=== PATIENT | female | born 1995 | race Caucasian/White ===

== ENCOUNTER 2019-01-29 07:52 | Observation (INO) | payer OTHER, SELFPAY ==
[2019-01-29 07:53] VITALS: BP 116/71; PULSE 89; RESP 20; TEMP 37.4; O2SAT 99; BMI 23.9
--- NOTE | 2019-01-29 08:03 | CT_ITS ---
STUDY: CT ABDOMEN AND PELVIS WITH CONTRAST REASON FOR EXAM: Female, 23 years old. 3 day history of right-sided abdominal pain and fever. Elevated white count. RADIATION DOSAGE (If Supplied By Facility): CTDIvol = ( 15.42 ) mGy, DLP = ( 1745.18 ) mGycm TECHNIQUE: Transaxial images were obtained from the dome of the diaphragm to the symphysis pubis with oral contrast. IV/Oral Isovue 370 100CC was administered. Sagittal and coronal images were reconstructed. Individualized dose optimization techniques were used for this CT. COMPARISON: None. FINDINGS: Minimal degree of dependent bibasilar atelectasis. The visualized portions of the heart are within normal limits. There is a 1.2 cm x 0.8 cm focus of subtle decreased attenuation in the superior right liver. This most likely represents a small hemangioma. Normal gallbladder and extrahepatic biliary system. Normal spleen. Normal pancreas. Normal bilateral adrenal glands. There is a 5 mm calculus at the right ureterovesical junction causing a mild degree of the right hydronephrosis and right hydroureter with the periureteric stranding on the right side. Normal left kidney. There is a small hiatal hernia. Normal small intestine. Normal colon. The appendix is visualized and appears normal. Normal abdominal aorta. Normal inferior vena cava. There is borderline retroperitoneal lymphadenopathy with enlarged nodes no greater than 10mm in the short axis diameter. Normal urinary bladder. Follicles are seen in both ovaries. Normal abdominal wall. Normal osseous structures. CT/Abdomen/Pelvis WITH Contrast IMPRESSION: 5 mm calculus at the right ureterovesical junction causing mild degree of right hydroureter and hydronephrosis with perinephric and periureteric stranding. Electronically Signed: Jeffy Rausch, at 10:36 EDT , Service support ,
[2019-01-29] MEDS: Morphine 4 MG/ML Syringe IV (08:13)
[2019-01-29] MEDS: Ondansetron 4 MG/2 ML Vial IV (08:13)
[2019-01-29] MEDS: 0.9% Normal Saline 1,000 ML 125 ML IV (08:14)
[2019-01-29 08:17] LABS: Absolute Lymphocyte Count 1.07 X10^3/uL (0.83-4.51); Absolute Neutrophil Count 14.4 X10^3/uL (2.0-7.7); Basophil# 0.03 X10^3/uL; Basophil% 0.2 % (0-1); Eosinophil# 0.16 X10^3/uL; Hematocrit 41.1 % (37-47); Lymphocyte # 1.07 X10^3/ul (4.0); Lymphocyte % 6.6 % (19-41); Mean Corp Hgb Conc 34.1 g/dL (32-36); Mean Corpuscular Hgb 32.6 pg (27.0-32.0); Mean Corpuscular Volume 95.6 fL (81-99); Mean Platelet Vol. 9.6 fl (6.2-12.0); Monocyte# 0.62 X10^3/uL; Monocyte% 3.8 % (0-10); NRBC Flagged by Analyzer 0 % (0-5); Neutrophil # 14.38 X10^3/uL (2.7-7.7); Neutrophil % 88.2 % (47-70); Platelet Count 293 K/mm3 (150-450); RBC Distribution Width CV 11.1 % (11.6-14.6); RBC Distribution Width SD 38.8 fl (35.1-43.9); White Blood Count 16.3 K/mm3 (4.4-11.0)
--- NOTE | 2019-01-29 08:20 | ED.DCSUM_ITS ---
- ER Visit Summary Date of Service: 01/29/19 Chief Complaint: [Abdominal pain] History of Present Illness: The patient is a 23 F [presents to the emergency department with complaint of right lower quadrant abdominal pain that started initially 3 days ago. Patient states that it started initially as just some mild periumbilical cramping that has now become continuous pain in the right lower quadrant. Patient states pain worse with movement. He said decreased appetite. She complains of nausea and started vomiting last night. She denies urinary symptoms. Patient did have low-grade fever last night up to 100 point something per patient and her mother. Patient's last menstrual period was about 3 weeks ago. Patient is on oral contraceptives. Patient has had no prior abdominal surgeries. Patient has no medical history otherwise. She denies any diarrhea. She denies blood in her stool or black tarry stool.] Physical Examination: [HEENT-PERRLA, EOMI. Cranial nerves II through XII grossly intact. TMs clear. Mucous membranes moist. No adenopathy. Cardiovascular-regular rate and rhythm without murmur or ectopy Lungs-clear to auscultation, chest wall stable without crepitus or subcu emphysema Abdomen-normoactive bowel sounds, soft. Patient has tenderness palpation over right lower quadrant with guarding. Patient does have point tenderness over McBurney's point. There is no rebound, rigidity, or perineal signs. Extremities-intact ?4, normal range of motion, normal pulses, atraumatic] Test Results: [C with differential obtained showed an elevated white blood cell count of 16.3, hemoglobin 14, hematocrit 41, platelets 293. Chemistries unremarkable other than depressed potassium 3.3. LFTs were normal. hCG was negative. CT scan abdomen pelvis pending. Urinalysis pending.] Emergency Department Course and Treatment: [Patient was medicated with morphine and Zofran. Patient case was discussed with general surgeon on-call Dr. Rea Valdes who will admit patient. I suspect clinically the patient has acute appendicitis however the CT results still pending. CT results were obtained which was read by radiology as a normal appendix however she did have a 5 mm right UVJ stone with hydroureter and perinephric's stranding as well as periureteric stranding. Case was then discussed with urology who did not feel patient had a kidney stone but felt she may have more of a pyelonephritis type of picture. Patient was started on Rocephin 1 g IV. Patient had a urine culture sent. She will be admitted to hospitalist with urology consultation.] Treatment Plan: [Admit Disposition: [Admit] Impression: [Abdominal pain Pyelonephritis] This note was generated with [employer] dictation software. It may contain incorrect words, spelling, and punctuation that were not noted in review of the chart prior to signing ED Disposition - Plan for ED Patient:
[2019-01-29 08:27] LABS: Internal QC Validated? YES +Cl - CLEAR BKGD; Pregnancy, Serum, hCG Quali. NEGATIVE Negative
[2019-01-29 08:34] LABS: ALB/GLOB Ratio 0.8 RATIO (0.9-2.4); AST(SGOT) 10 U/L (15-37); Alanine Aminotransfer ALT/SGPT 19 U/L (13-56); Albumin, Serum 3.6 g/dL (3.2-5.0); Alkaline Phosphatase 47 U/L (45-117); Anion Gap 11 (5-15); BUN 7 mg/dL (7-18); Calcium,Total 8.8 mg/dL (8.5-10.1); Chloride 106 mmol/L (98-107); Creatinine, Serum 0.87 mg/dL (0.55-1.02); EST Glomerular Filtration Rate 85 mL/min (>60); Est Glom Filt Rate - Afr Amer 103 mL/min (>60); Estimated Creatinine Clearance 83.19 ml/min; Globulin 4.3 g/dL (2.2-4.2); Glucose 108 mg/dL (74-106); Potassium 3.3 mmol/L (3.5-5.1); Protein, Total 7.9 g/dL (6.4-8.2); Sodium Level 140 mmol/L (136-145)
--- NOTE | 2019-01-29 09:17 | NURSING ---
MED SURG MALORIE RT LOWER QUADRANT ABD PAIN
[2019-01-29 10:21] LABS: Mucous, Urine 0 SEEN /hpf (<or=2+); Red Blood Cells-Urine 0 SEEN /hpf (0-5)
[2019-01-29 10:22] LABS: Color, Urine Yellow (Yellow); Glucose, Dipstick Normal (Normal); Ketone-Dipstick 50 mg/dl (Negative); Leukocyte Esterase-Dipstick 100 /ul (Negative); Nitrite-Dipstick Negative (Negative); Occult Blood-Urine 50 /ul (Negative); Protein-Dipstick Negative (Negative); Urine Bilirubin Dipstick Negative (Negative); Urine Clarity Sl. Cloudy (Clear); Urine Urobilinogen Normal (Normal); Urine pH 6.5 (5.0 - 8.0)
[2019-01-29 10:33] LABS: Bacteria 2+ /hpf (None Seen); Squamous Epithelial Cells - UA 5-10 SEEN /hpf (5-10); White Blood Cells 10-25 SEEN /hpf (0-5)
--- NOTE | 2019-01-29 10:47 | NURSING ---
DR MALORIE VILLEGAS
--- NOTE | 2019-01-29 10:51 | NURSING ---
DR HYACINTH VILLEGAS
--- NOTE | 2019-01-29 11:10 | NURSING ---
DR MIRYAM ROSSI
--- NOTE | 2019-01-29 11:16 | NURSING ---
310 DR MIRYAM WHITE PAIN, PYELONEPHRITIS
--- NOTE | 2019-01-29 11:19 | PCM.HP.STD ---
Problem List (1) Pyelonephritis Status: Acute (2) Abdominal pain Status: Acute History of Present Illness Date of Admission: 01/29/19 Chief Complaint: Right-sided abdominal pain for 3 days. The patient is a 23 year old F with no significant medical problem except menorrhagia on control pill came to ER for right-sided abdominal pain for 3 days. Pain started in mid abdomen and more localized on the right side. Abdominal pain got more worse associated with vomiting 1-2 times, nausea. She also felt low-grade fever, 100 Fahrenheit with chills. Denies burning micturition, increased frequency or urgency, hematuria or other lower urinary tract symptoms. She had cystitis about 3 years ago which did not require admission. In ED, vitals were stable, T-max 99.4. She had mild vomiting after giving Dilaudid. Initial blood work shows leukocytosis 16.3 thousand, neutrophils 88%, K3.3. UA is positive of leukocyte esterase 100, WBC 10-25, RBC 0 and nitrite negative. Urine culture is ordered. Empirically started on IV antibiotic Rocephin and IV fluid, pain medication [] Past Medical History Allergies No Known Allergies Allergy (Verified 01/08/13 14:10) Home Medications: Ambulatory Orders Medication Instructions Recorded Bcp 1 tab PO DAILY 01/13/13 Fluoxetine [Prozac] 60 mg PO DAILY 01/13/13 Buspirone HCl 10 mg PO DAILY 01/29/19 Lorazepam [Ativan] 0.5 mg PO DAILY PRN 01/29/19 Propranolol HCl [Inderal LA (Beta 80 mg PO DAILY 01/29/19 Filemon)] Smoking Status: Never smoker - *Family History Paternal History Items: No pertinent history - Kidney stone and first-degree family relative or urinary obstruction Review of Systems Constitutional: Reports: Chills, Fever, Weakness HEENT: Denies: Head Aches, Sinus Congestion, Sinus Drainage Cardiovascular: Denies: Chest Pain, Palpitations Respiratory: Denies: Cough, Shortness of breath at rest, Sputum production Gastrointestinal: Denies: Abdominal Pain, Nausea, Vomiting Genitourinary: Denies: Dysuria, Frequency, Hematuria, Incontinence, Retention, Urgency Musculoskeletal: Denies: Joint Pain, Joint Tenderness Skin: Denies: Rash, Wounds VTE Information - Inpt Only VTE Present on Admission: No VTE Mechan Device Prophylaxis: None VTE Pharm Prophylaxis ordered?: No Reason prophylaxis not ordered:: Procedure Not Indicated Patient Problems: Active and Suspected Problems Pyelonephritis (Acute) Abdominal pain (Acute) - Physical Exam Vitals/I&O's: Vital Signs Temp Pulse Resp BP Pulse Ox 99.4 F H 89 20 H 116/71 99 01/29/19 07:53 01/29/19 07:53 01/29/19 07:53 01/29/19 07:53 01/29/19 07:53 Oxygen Delivery Method Room Air Weight: 135 lb Body Mass Index (BMI) 23.9 General: Alert, Oriented x3, Cooperative HEENT: Atraumatic, PERRLA, EOMI, Normocephalic Oral: Dry Mucosa Neck: Supple, No JVD, Negative Carotid Bruits Lungs: Clear to auscultation, Normal air movement, No rhonchi, No wheeze, No rales Cardiovascular: Regular rate, Regular Rhythm, Normal S1, Normal S2, No murmurs Abdomen: Bowel Sounds Present, Soft, Non-Distended, Tender - Tenderness present over right side of the abdomen. Right lower quadrant tenderness. Extremities: No edema, Capillary Refill Less than 3 Seconds Skin: No rashes, No breakdown Musculoskeletal: No Tenderness to Palpation of Joints or Extremities Neurological: Cranial nerves II-XII grossly intact Psych/Mental Status: Normal Affect, Appropriate Laboratory Results 01/29/19 08:10: WBC 16.3 H, RBC 4.30, Hgb 14.0, Hct 41.1, MCV 95.6, MCH 32.6 H, MCHC 34.1, RDW Std Deviation 38.8, RDW Coeff of Stephanie 11.1 L, Plt Count 293, MPV 9.6, Immature Gran % (Auto) 0.200, Neut % (Auto) 88.2 H, Lymph % (Auto) 6.6 L, [place] % (Auto) 3.8, Eos % (Auto) 1.0, Baso % (Auto) 0.2, Absolute Neuts (auto) 14.4 H, Absolute Lymphs (auto) 1.07, Nucleated RBC % 0 01/29/19 08:10: Sodium 140, Potassium 3.3 L, Chloride 106, Carbon Dioxide 23.0, Anion Gap 11, BUN 7, Creatinine 0.87, Estim Creat Clear Calc 83.19, Est GFR (MDRD) Af Amer 103, Est GFR (MDRD) Non-Af 85, BUN/Creatinine Ratio 8.0 L, Glucose 108 H, Calcium 8.8, Total Bilirubin 1.30 H, AST 10 L, ALT 19, Alkaline Phosphatase 47, Total Protein 7.9, Albumin 3.6, Globulin 4.3 H, Albumin/Globulin Ratio 0.8 L 01/29/19 08:10: Serum , Qual NEGATIVE 01/29/19 10:20: Urine Color Yellow, Urine Clarity Sl. Cloudy, Urine pH 6.5, Ur Specific [place] 1.010, Urine Protein Negative, Urine Glucose (UA) Normal, Urine Ketones 50 H, Urine Occult Blood 50 H, Urine Nitrite Negative, Urine Bilirubin Negative, Urine Urobilinogen Normal, Ur Leukocyte Esterase 100 H, Urine RBC 0 SEEN, Urine WBC 10-25 SEEN, Ur Squamous Epith Cells 5-10 SEEN, Urine Bacteria 2+, Urine Mucus 0 SEEN Current Medications Sodium Chloride () 1,000 mls @ 125 mls/hr IV .Q8H LOLY Last Admin: 01/29/19 08:14 Dose: 125 mls/hr Documented by: Assessment/Plan All Active Problems Pyelonephritis (Acute) Abdominal pain (Acute) The patient is a 23 year old F with no significant medical problem except menorrhagia on control pill came to ER for right-sided abdominal pain for 3 days. Pain started in mid abdomen and more localized on the right side. Abdominal pain got more worse associated with vomiting 1-2 times, nausea. She also felt low-grade fever, 100 Fahrenheit with chills. Denies burning micturition, increased frequency or urgency, hematuria or other lower urinary tract symptoms. She had cystitis about 3 years ago which did not require admission. In ED, vitals were stable, T-max 99.4. She had mild vomiting after giving Dilaudid. Initial blood work shows leukocytosis 16.3 thousand, neutrophils 88%, K3.3. UA is positive of leukocyte esterase 100, WBC 10-25, RBC 0 and nitrite negative. Urine culture is ordered. Empirically started on IV antibiotic Rocephin and IV fluid, pain medication [] 1. Right-sided pyelonephritis probably secondary to right UV junction small calculus: Patient is being admitted to [facility] floor. IV fluid normal saline, IV Rocephin, pain control and supportive treatment for nausea and vomiting. I discussed with urologist Dr. Trejo and suggested n.p.o. for cystoscopy and right ureteral stent today. follow-up urine culture. If patient spikes fever, will need blood cultures x2. 2. Mild degree of right hydroureter and hydronephrosis with perinephric and periureteric stranding suggestive of pyelonephritis: On IV antibiotics as mentioned above Mild hypokalemia: Potassium is being replaced. Anxiety, depression, and menorrhagia: Patient is on Prozac, Ativan and risperidone at home. Patient on Inderal LA 80 mg daily. DVT prophylaxis, low risk early ambulation encouraged. Discussed with the patient's parent. Clinical Impression(s) from Imaging Studies Abdomen/Pelvis CT 01/29/19 08:03 IMPRESSION: 5 mm calculus at the right ureterovesical junction causing mild degree of right hydroureter and hydronephrosis with perinephric and periureteric stranding. Code Visit Inpatient E&M: 05734 Init Hosp L2
[2019-01-29 12:01] VITALS: BP 131/80; PULSE 84; RESP 16; TEMP 36.9; O2SAT 94
[2019-01-29 12:15] VITALS: BMI 31.4
[2019-01-29] MEDS: HYDROmorphone 0.5 MG/0.5 ML SYRINGE IV ×2 (12:39→19:38)
[2019-01-29] MEDS: 0.9% Normal Saline 1,000 ML 150 ML IV ×2 (12:40→19:29)
[2019-01-29 12:49] VITALS: BMI 31.5
[2019-01-29 12:49] LABS: Magnesium 1.9 mg/dL (1.6-2.6)
[2019-01-29 13:10] VITALS: O2SAT 94
[2019-01-29] MEDS: Ceftriaxone 1 GM/50 ML BAG IV (13:28)
--- NOTE | 2019-01-29 14:43 | CHAPLAIN ---
Type of Pastoral Visit _x__ Initial Visit ___ Follow-up Visit ___ On-call Visit ___ General Patient Visit ___ Spiritual Assessment ___ Family Conference ___ Bereavement ___ Rapid Response ___ Code Blue ___ Other (describe below) Pastoral Care Referral From _x__ Patient ___ Family ___ Nurse ___ Physician ___ Mover ___ Liner Helper ___ Other (describe below) Sacrament/Intervention _x__ Active listening ___ Anointing ___ Denominational ___ Bereavement ___ Communion ___ Risa exploration ___ ___ Life review _x__ Prayer ___ Reconciliation ___ Sacrament of Sick ___ Supportive presence ___ Wedding ___ Other (describe below) Pastoral Comments
--- NOTE | 2019-01-29 15:19 | PCM.CONS.U ---
Reason for Consult Date of Consultation: 01/29/19 Reason for Consultation: Possible kidney stone and urinary tract infection History of Present Illness: The patient is a 23 year old female admitted to the hospital with abdominal pain she underwent a CAT scan demonstrated some dilation in the ureter and radiology report dictated a 5 mm stone in the distal right ureter. I reviewed the CAT scan myself and was not able to identify the stone on CAT scan she has several phleboliths certainly in the right pelvis that could cause confusion. She does have some mild dilation of the ureter but not significant some mild stranding more consistent with pyelonephritis. Urine culture appears positive for infection. Her pain is also not colicky is more like a dull ache pain in the right side. Past Medical History Allergies No Known Allergies Allergy (Verified 01/08/13 14:10) Home Medications: Ambulatory Orders Medication Instructions Recorded Bcp 1 tab PO DAILY 01/13/13 Fluoxetine [Prozac] 60 mg PO DAILY 01/13/13 Buspirone HCl 10 mg PO DAILY 01/29/19 Lorazepam [Ativan] 0.5 mg PO DAILY PRN 01/29/19 Propranolol HCl [Inderal LA (Beta 80 mg PO DAILY 01/29/19 Filemon)] Surgical History: no surgical history Psychiatric History: No pertinent psych hx MONITORING TECH History: No pertinent MONITORING TECH history Lives: With Family Smoking Status: Never smoker Tobacco Use: Non-smoker Alcohol: None - *Family History Paternal History Items: No pertinent history - Kidney stone and first-degree family relative or urinary obstruction Review of Systems Constitutional: Reports: Chills, Fever. Denies: Weight Change HEENT: Denies: Head Aches, Sinus Congestion, Sinus Drainage Cardiovascular: Denies: Chest Pain, Palpitations Respiratory: Denies: Cough, Shortness of breath at rest, Sputum production Gastrointestinal: Reports: Abdominal Pain. Denies: Nausea, Vomiting Genitourinary: Denies: Dysuria Musculoskeletal: Denies: Joint Pain, Joint Tenderness Skin: Denies: Rash, Wounds Neurological: Denies: Numbness, Tingling, Focal weakness Psychiatric: Denies: Anxiety, Depression, Homicidal Ideations, Suicidal Ideations Hematologic/ Lymphatic: Denies: Easy Bruising, Easy Bleeding Physical Exam - Physical Exam Vital Signs Temp 98.4 F 01/29/19 12:01 Pulse 84 01/29/19 12:01 Resp 16 01/29/19 12:01 BP 131/80 H 01/29/19 12:01 Pulse Ox 94 01/29/19 12:01 Intake & Output 01/27/19 01/28/19 01/29/19 23:59 23:59 23:59 Intake Total 470.83 / 470.83 Balance 470.83 / 470.83 Weight: 80.6 kg Intake: Intake, IV Amount 470.83 / 470.83 0.9% Normal Saline 1,000 ML @ 470.83 / 470.83 125 mls/hr IV .Q8H [facility] Rx#: [id number] General: Alert, Oriented x3 HEENT: Atraumatic Oral: Moist Mucosa Neck: Supple Lungs: Normal air movement Cardiovascular: Regular rate Abdomen: Soft, Obese Laboratory Tests Past 24 Hrs 01/29/19 01/29/19 01/29/19 08:10 08:10 08:10 WBC 16.3 H RBC 4.30 Hgb 14.0 Hct 41.1 MCV 95.6 MCH 32.6 H MCHC 34.1 RDW Std Deviation 38.8 RDW Coeff of Stephanie 11.1 L Plt Count 293 MPV 9.6 Immature Gran % (Auto) 0.200 Neut % (Auto) 88.2 H Lymph % (Auto) 6.6 L [place] % (Auto) 3.8 Eos % (Auto) 1.0 Baso % (Auto) 0.2 Absolute Neuts (auto) 14.4 H Absolute Lymphs (auto) 1.07 Nucleated RBC % 0 Sodium 140 Potassium 3.3 L Chloride 106 Carbon Dioxide 23.0 Anion Gap 11 BUN 7 Creatinine 0.87 Estim Creat Clear Calc 83.19 Est GFR (MDRD) Af Amer 103 Est GFR (MDRD) Non-Af 85 BUN/Creatinine Ratio 8.0 L Glucose 108 H Calcium 8.8 Magnesium Total Bilirubin 1.30 H AST 10 L ALT 19 Alkaline Phosphatase 47 Total Protein 7.9 Albumin 3.6 Globulin 4.3 H Albumin/Globulin Ratio 0.8 L Serum , Qual NEGATIVE Urine Color Urine Clarity Urine pH Ur Specific [place] Urine Protein Urine Glucose (UA) Urine Ketones Urine Occult Blood Urine Nitrite Urine Bilirubin Urine Urobilinogen Ur Leukocyte Esterase Urine RBC Urine WBC Ur Squamous Epith Cells Urine Bacteria Urine Mucus 01/29/19 01/29/19 08:10 10:20 WBC RBC Hgb Hct MCV MCH MCHC RDW Std Deviation RDW Coeff of Stephanie Plt Count MPV Immature Gran % (Auto) Neut % (Auto) Lymph % (Auto) [place] % (Auto) Eos % (Auto) Baso % (Auto) Absolute Neuts (auto) Absolute Lymphs (auto) Nucleated RBC % Sodium Potassium Chloride Carbon Dioxide Anion Gap BUN Creatinine Estim Creat Clear Calc Est GFR (MDRD) Af Amer Est GFR (MDRD) Non-Af BUN/Creatinine Ratio Glucose Calcium Magnesium 1.9 Total Bilirubin AST ALT Alkaline Phosphatase Total Protein Albumin Globulin Albumin/Globulin Ratio Serum , Qual Urine Color Yellow Urine Clarity Sl. Cloudy Urine pH 6.5 Ur Specific [place] 1.010 Urine Protein Negative Urine Glucose (UA) Normal Urine Ketones 50 H Urine Occult Blood 50 H Urine Nitrite Negative Urine Bilirubin Negative Urine Urobilinogen Normal Ur Leukocyte Esterase 100 H Urine RBC 0 SEEN Urine WBC 10-25 SEEN Ur Squamous Epith Cells 5-10 SEEN Urine Bacteria 2+ Urine Mucus 0 SEEN Assessment/Plan All Active Problems Pyelonephritis (Acute) Abdominal pain (Acute) 23-year-old female on review of the CAT scan she does have some dilation of the ureter but in trace in the ureter down to the bladder I do not see a stone along the course of the ureter there are several phleboliths that could be in the way very close to the ureter. Nevertheless certainly one option would be intervention with ureteroscopy and laser if there is a stone or conservative measures to see if she would pass a possible stone. And treatment of the infection with IV antibiotics. She is clinically stable no signs of sepsis or infection I think we can be conservative and continue with hydration antibiotics and straining urine I think once her white count resolves and is clinically better spreading go home with antibiotics again I am not convinced she has a kidney stone so we will hold off on doing any procedures I spoke to the family and I spoke to the patient and her agreeable with observation and on antibiotics for now. Call me with questions
[2019-01-29 20:15] VITALS: BP 133/75; PULSE 100; RESP 18; TEMP 36.9; O2SAT 98
[2019-01-29] MEDS: proCHLORPERazine 10 MG/2 ML Vial IV (20:40)
[2019-01-29] MEDS: Propranolol LA 80 MG Capsule PO (21:08)
[2019-01-29] MEDS: busPIRone 5 MG Tablet 10 MG PO (21:08)
[2019-01-29] MEDS: FLUoxetine 20 MG Capsule 40 MG PO (21:08)
[2019-01-30] MEDS: oxyCODONE 5 MG Tablet PO ×2 (02:01→10:15)
[2019-01-30 02:15] VITALS: BP 128/77; PULSE 80; RESP 18; TEMP 37.3; O2SAT 98
[2019-01-30 06:07] LABS: Absolute Lymphocyte Count 1.36 X10^3/uL (0.83-4.51); Absolute Neutrophil Count 8.7 X10^3/uL (2.0-7.7); Basophil# 0.03 X10^3/uL; Basophil% 0.3 % (0-1); Eosinophil# 0.09 X10^3/uL; Eosinophils% 0.8 % (0-5); Hematocrit 40.2 % (37-47); Hemoglobin 13.3 g/dL (12.0-15.0); Lymphocyte # 1.36 X10^3/ul (4.0); Lymphocyte % 11.7 % (19-41); Mean Corp Hgb Conc 33.1 g/dL (32-36); Mean Corpuscular Hgb 32.5 pg (27.0-32.0); Mean Corpuscular Volume 98.3 fL (81-99); Mean Platelet Vol. 9.6 fl (6.2-12.0); NRBC Flagged by Analyzer 0 % (0-5); Neutrophil # 8.74 X10^3/uL (2.7-7.7); Neutrophil % 74.9 % (47-70); Platelet Count 236 K/mm3 (150-450); RBC Distribution Width CV 10.9 % (11.6-14.6); RBC Distribution Width SD 39.5 fl (35.1-43.9); Red Blood Count 4.09 M/mm3 (4.2-5.4); White Blood Count 11.7 K/mm3 (4.4-11.0)
[2019-01-30 06:22] LABS: Anion Gap 8 (5-15); BUN 4 mg/dL (7-18); BUN/Creat Ratio 6.2 RATIO (10-20); Calcium,Total 8.7 mg/dL (8.5-10.1); Chloride 109 mmol/L (98-107); Creatinine, Serum 0.64 mg/dL (0.55-1.02); EST Glomerular Filtration Rate 121 mL/min (>60); Est Glom Filt Rate - Afr Amer 147 mL/min (>60); Estimated Creatinine Clearance 113.09 ml/min; Glucose 93 mg/dL (74-106); Potassium 4.1 mmol/L (3.5-5.1); Sodium Level 138 mmol/L (136-145)
--- NOTE | 2019-01-30 08:09 | DCINST_ITS ---
- Discharge Diagnoses Current Active Problems: Current Active and Chronic Problems Pyelonephritis (Acute) Abdominal pain (Acute) You will use the following diet at home:: Regular Discharge Activity: Return to Normal Activity Weight Bearing Status: Weight bearing as tolerated Additional Activity Instructions:: Follow-up with the urine culture in 1 week with PCP Call your doctor if you observe: Fever of 101 or Higher, Numbness or Tingling, Inability to urinate, Inability to have a bowel movement, Using more than one pad per hour, Shortness of breath, Dizziness, Chest pain, Prolonged hiccoughing, Increased palpitations (irregular heartbeat) Allergies/Adverse Reactions: Allergies No Known Allergies Allergy (Verified 01/08/13 14:10) Medications to take at Discharge Bcp 1 tab PO DAILY 01/13/13 Fluoxetine [Prozac] 60 mg PO DAILY 01/13/13 Buspirone HCl 10 mg PO DAILY 01/29/19 Lorazepam [Ativan] 0.5 mg PO DAILY PRN 01/29/19 Propranolol HCl [Inderal LA (Beta Filemon)] 80 mg PO DAILY 01/29/19 Ciprofloxacin [Cipro] 500 mg PO BID #10 tab 01/30/19 The following prescriptions were given: Ciprofloxacin [Cipro] 500 mg PO BID #10 tab Transmission Status: Pending to [facility] Primary Care Physician: Kingston Fajardo DO [Primary Care Provider] - Please follow up with your Primary Care Physician in: in 2 weeks Test Results: Test results from this visit will be discussed in further detail at your follow- up appointment, if applicable. Please Follow Up With: Sher Trejo MD When: RIGHT pyelonephritis in 1-2 we[place]ry
--- NOTE | 2019-01-30 08:10 | PCM.DC.SUM ---
Discharge Date and Diagnosis Date of Admission: 01/29/19 Date of Discharge: 01/30/19 - Primary Discharge Diagnosis Active and Suspected Problems Pyelonephritis (Acute) Abdominal pain (Acute) Hospital Course and Treatment Summary of Care Provided: [] The patient is a 23 year old F with no significant medical problem except menorrhagia on control pill came to ER for right-sided abdominal pain for 3 days mainly mid abdomen along with nausea, low-grade fever 100 Fahrenheit. Denies burning micturition, increased frequency or urgency, hematuria or other lower urinary tract symptoms. She had cystitis about 3 years ago which did not require admission. In ED, vitals were stable, T-max 99.4. She had mild vomiting after giving Dilaudid. Initial blood work shows leukocytosis 16.3 thousand, neutrophils 88%, K3.3. UA is positive of leukocyte esterase 100, WBC 10-25, RBC 0 and nitrite negative. Urine culture is ordered. Empirically started on IV antibiotic Rocephin and IV fluid, pain medication [] 1. Right-sided pyelonephritis probably secondary to right pelvic phlebolith: [facility] IV fluid normal saline, IV Rocephin, pain control and supportive treatment for nausea and vomiting. I discussed with urologist Dr. Trejo and he believes several phleboliths in the right pelvis and he was not able to identify stone. Patient has some mild dilatation of right hydroureter and hydronephrosis and periureteric stranding suggestive of pyelonephritis. Leukocytosis improved from 16,000-11,000. Patient got 2 days of IV antibiotics and discharged on 5 more days of Cipro. Patient did not had fever after admission. In triage, temperature 97.4. Abdominal pain resolved. Preliminary urine culture shows E. coli more than 100,000 colonies; sensitivity pending. Advised to follow-up urine culture sensitivity with PCP. Mild hypokalemia: Potassium is being replaced. Anxiety, depression, and menorrhagia: Patient is on Prozac, Ativan and risperidone at home. Patient on Inderal LA 80 mg daily. DVT prophylaxis, low risk early ambulation encouraged. Discharge medication reconciliation done. Discharge follow-up instructions completed. Discharge process discussed with the patient and all questions were answered to patient's satisfaction.. Clinical Impression(s) from Imaging Studies Abdomen/Pelvis CT 01/29/19 08:03 IMPRESSION: 5 mm calculus at the right ureterovesical junction causing mild degree of right hydroureter and hydronephrosis with perinephric and periureteric stranding. Microbiology Past 72 Hours 01/29/19 10:27 Urine, Clean Catch Urine Culture - Preliminary Presumptive E. coli Laboratory Results 01/30/19 05:48: WBC 11.7 H, RBC 4.09 L, Hgb 13.3, Hct 40.2, MCV 98.3, MCH 32.5 H, MCHC 33.1, RDW Std Deviation 39.5, RDW Coeff of Stephanie 10.9 L, Plt Count 236, MPV 9.6, Immature Gran % (Auto) 0.300, Neut % (Auto) 74.9 H, Lymph % (Auto) 11.7 L, [place] % (Auto) 12.0 H, Eos % (Auto) 0.8, Baso % (Auto) 0.3, Absolute Neuts (auto) 8.7 H, Absolute Lymphs (auto) 1.36, Nucleated RBC % 0 01/30/19 05:48: Sodium 138, Potassium 4.1, Chloride 109 H, Carbon Dioxide 21.0, Anion Gap 8, BUN 4 L, Creatinine 0.64, Estim Creat Clear Calc 113.09, Est GFR (MDRD) Af Amer 147, Est GFR (MDRD) Non-Af 121, BUN/Creatinine Ratio 6.2 L, Glucose 93, Calcium 8.7 - Physical Exam Vitals/I&O's: Vital Signs Temp Pulse Resp BP Pulse Ox 99.1 F 80 18 128/77 H 98 01/30/19 02:15 01/30/19 02:15 01/30/19 02:15 01/30/19 02:15 01/30/19 02:15 Oxygen Delivery Method Room Air Weight: 177 lb 11.081 oz Body Mass Index (BMI) 31.4 Intake and Output for Last 24 Hours 01/28/19 01/29/19 01/30/19 23:59 23:59 23:59 Intake Total 1520.83 / 1520.83 1000 / 1000 Output Total 1200 / 1200 800 / 800 Balance 320.83 / 320.83 200 / 200 General: Alert, Oriented x3, Cooperative HEENT: Atraumatic, PERRLA, EOMI, Normocephalic Neck: Supple, No JVD, Negative Carotid Bruits Lungs: Clear to auscultation, Normal air movement, No rhonchi, No wheeze, No rales Cardiovascular: Regular rate, Regular Rhythm, Normal S1, Normal S2, No murmurs Abdomen: Bowel Sounds Present, Soft, Non Tender, Non-Distended Extremities: No edema, Capillary Refill Less than 3 Seconds Skin: No rashes, No breakdown Musculoskeletal: No Tenderness to Palpation of Joints or Extremities Neurological: Cranial nerves II-XII grossly intact Psych/Mental Status: Normal Affect, Appropriate Laboratory Results 01/29/19 08:10: WBC 16.3 H, RBC 4.30, Hgb 14.0, Hct 41.1, MCV 95.6, MCH 32.6 H, MCHC 34.1, RDW Std Deviation 38.8, RDW Coeff of Stephanie 11.1 L, Plt Count 293, MPV 9.6, Immature Gran % (Auto) 0.200, Neut % (Auto) 88.2 H, Lymph % (Auto) 6.6 L, [place] % (Auto) 3.8, Eos % (Auto) 1.0, Baso % (Auto) 0.2, Absolute Neuts (auto) 14.4 H, Absolute Lymphs (auto) 1.07, Nucleated RBC % 0 01/29/19 08:10: Sodium 140, Potassium 3.3 L, Chloride 106, Carbon Dioxide 23.0, Anion Gap 11, BUN 7, Creatinine 0.87, Estim Creat Clear Calc 83.19, Est GFR (MDRD) Af Amer 103, Est GFR (MDRD) Non-Af 85, BUN/Creatinine Ratio 8.0 L, Glucose 108 H, Calcium 8.8, Total Bilirubin 1.30 H, AST 10 L, ALT 19, Alkaline Phosphatase 47, Total Protein 7.9, Albumin 3.6, Globulin 4.3 H, Albumin/Globulin Ratio 0.8 L 01/29/19 08:10: Serum , Qual NEGATIVE 01/29/19 08:10: Magnesium 1.9 01/29/19 10:20: Urine Color Yellow, Urine Clarity Sl. Cloudy, Urine pH 6.5, Ur Specific [place] 1.010, Urine Protein Negative, Urine Glucose (UA) Normal, Urine Ketones 50 H, Urine Occult Blood 50 H, Urine Nitrite Negative, Urine Bilirubin Negative, Urine Urobilinogen Normal, Ur Leukocyte Esterase 100 H, Urine RBC 0 SEEN, Urine WBC 10-25 SEEN, Ur Squamous Epith Cells 5-10 SEEN, Urine Bacteria 2+, Urine Mucus 0 SEEN 01/30/19 05:48: WBC 11.7 H, RBC 4.09 L, Hgb 13.3, Hct 40.2, MCV 98.3, MCH 32.5 H, MCHC 33.1, RDW Std Deviation 39.5, RDW Coeff of Stephanie 10.9 L, Plt Count 236, MPV 9.6, Immature Gran % (Auto) 0.300, Neut % (Auto) 74.9 H, Lymph % (Auto) 11.7 L, [place] % (Auto) 12.0 H, Eos % (Auto) 0.8, Baso % (Auto) 0.3, Absolute Neuts (auto) 8.7 H, Absolute Lymphs (auto) 1.36, Nucleated RBC % 0 01/30/19 05:48: Sodium 138, Potassium 4.1, Chloride 109 H, Carbon Dioxide 21.0, Anion Gap 8, BUN 4 L, Creatinine 0.64, Estim Creat Clear Calc 113.09, Est GFR (MDRD) Af Amer 147, Est GFR (MDRD) Non-Af 121, BUN/Creatinine Ratio 6.2 L, Glucose 93, Calcium 8.7 Current Medications Acetaminophen (Tylenol) 650 mg PO Q6H PRN PRN PRN Reason: Pain Score 1-3/Temp > 100.7 F Albuterol Sulfate (Ventolin Aerosols) 2.5 mg INHALATION Q2H PRN PRN PRN Reason: Shortness of Breath/Wheezing Bisacodyl (Dulcolax) 10 mg RECTAL DAILY PRN PRN PRN Reason: Constipation Buspirone HCl (Buspar) 10 mg PO QHS [facility] Last Admin: 01/29/19 21:08 Dose: 10 mg Documented by: Dextrose (D50w Syringe) 0 gm IV X1 PRN; Protocol PRN Reason: Hypoglycemia Docusate Sodium (Colace) 200 mg PO BID PRN PRN PRN Reason: Constipation Fluoxetine HCl (Prozac) 40 mg PO QHS [facility] Last Admin: 01/29/19 21:08 Dose: 40 mg Documented by: Glucagon () 1 mg IM .X1 PRN PRN Reason: Hypoglycemia Hydromorphone HCl (Dilaudid Inj) 0.5 mg IV Q4H PRN PRN PRN Reason: Pain Score 6-10/10 Last Admin: 01/29/19 19:38 Dose: 0.5 mg Documented by: Ceftriaxone Sodium (Rocephin) 1 gm in 50 mls @ 100 mls/hr IV Q24 [facility] Last Infusion: 01/29/19 13:58 Dose: Infused Documented by: Lorazepam (Ativan) 0.5 mg PO DAILY PRN PRN Reason: ANXIETY Oxycodone HCl (Oxyir) 5 mg PO Q4H PRN PRN PRN Reason: Pain Score 4-5/10 Last Admin: 01/30/19 02:01 Dose: 5 mg Documented by: Prochlorperazine Edisylate (Compazine Iv) 10 mg IV Q6H PRN PRN PRN Reason: Nausea/Vomiting Last Admin: 01/29/19 20:40 Dose: 10 mg Documented by: Propranolol HCl (Inderal La) 80 mg PO QHS [facility] Last Admin: 01/29/19 21:08 Dose: 80 mg Documented by: Home Medications: Medications to take at Discharge Bcp 1 tab PO DAILY 01/13/13 Fluoxetine [Prozac] 60 mg PO DAILY 01/13/13 Buspirone HCl 10 mg PO DAILY 01/29/19 Lorazepam [Ativan] 0.5 mg PO DAILY PRN 01/29/19 Propranolol HCl [Inderal LA (Beta Filemon)] 80 mg PO DAILY 01/29/19 Ciprofloxacin [Cipro] 500 mg PO BID #10 tab 01/30/19 Following Prescrptions Were Given to Patient: Ciprofloxacin [Cipro] 500 mg PO BID #10 tab Transmission Status: Received by [facility] Primary Care Physician: Kingston Fajardo DO [Primary Care Provider] - Medical Necessity - Tobacco Use Smoking Status: Never smoker Tobacco Use: Non-smoker Meaningful Use Info Meaningful Use Diagnoses (Choose all that apply): None applicable Code Visit OBSV E&M: 27367 Observation care discharge
[2019-01-30 09:26] VITALS: BP 121/71; PULSE 90; RESP 18; TEMP 36.9; O2SAT 99
[2019-01-30] MEDS: Ceftriaxone 1 GM/50 ML BAG IV (09:30)
[2019-01-30 13:05] VITALS: BP 123/84; PULSE 90; RESP 18; TEMP 36.7; O2SAT 98
== END 2019-01-30 13:13 | disposition home or self-care (01) ==
LOC: ED 08:54 → MS3 11:17
PROVIDERS: Admitting Provider Internal Medicine; Emergency Provider Emergency Medicine; Family Provider Family Medicine; PCP Family Medicine; Referring Provider Internal Medicine; Visit Provider Internal Medicine
DX: N10 Acute pyelonephritis (principal); E87.6 Hypokalemia; N13.2 Hydronephrosis with renal and ureteral calculous obstruction; F41.9 Anxiety disorder, unspecified; F32.9 Major depressive disorder, single episode, unspecified; N92.0 Excessive and frequent menstruation with regular cycle
CPT/HCPCS: 36415; 74177; 80048; 80053; 81001; 83735; 84703; 85025; 87086; 87088; 87186; 96361; 96365; 96366; 96375; 96376; 99218; 99282; J7030; Q9967; A4216; G0378; J2405

== ENCOUNTER → 2023-04-10 | Outpatient (CLI) | payer MEDICAID, SELFPAY ==
--- OUTSIDE RECORDS SUMMARY | 2023-04-10 12:32 | XMS RPT_ITS | CCD ---
Author Name Unknown Address [address] [place] [address] Organization [facility] Care Team Providers Care Professor Of Visual Arts Name Role Phone ARTURO BLACKWOOD (COORDINATE MEASURING MACHINE TECHNICIAN) Unavailable Unavailabl e DEVYN CAMPBELL JR. Attending Unavailable Unavailable Primary Care Provider Unavailabl e Problems Problem Classification Problem Date Documented Da te Episodic/Chronic Headache; including migraine (1 source) Migraine without aura, not refractory ; Translations: [Migraine without aura, not intractable, without status migrainosus] Chronic Results Test Name Value Interpretation Reference Range Facil ity Encounters Encounter Date Encounter Type Care Provider Facility Start: 02-22-2022 Transcribe Orders Darby aguilar DO Work Phone: [facility] Payers Date Payer Category Payer Unknown [id number] 2021 Unknown [employer] [place] [facility] [place] [id number] 2021-Present [phone] [address] [place] [address] [id number] 1995 Unknown [id number] Social History Date Type Detail Facility Tobacco smoking status 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 [facility] Start: 1995 Sex Assigned At Not on file [facility] Evaluation note Note Date & Type Note Facility documented in this encounter [facility] Summary Purpose Family History No Family History Records FoundNo Family History Records FoundNo Family History Records Found Advance Directives No Advanced Directives Records FoundNo Advanced Directives Records FoundNo Advanced Directives Records Found Reason for Referral Specialty Diagnoses / Procedures Referred By Contac t Referred To Contact Neurology Diagnoses Migraine without aura and without status migrainosus, not intractable Marcos Darby, [address] [place] [address] [facility] [place] Referral ID Status Reason Start Date Expiration Date V isits Requested Visits Authorized [id number] Authorized 02/22/2022 02/22/2023 1 1 Additional Source Comments INFORMATION SOURCE (unrecogn ized section and content) DATE CREATED AUTHOR AUTHOR'S ORGANIZ ATION 09/28/2021 [facility] DATE CREATED AUTHOR AUTHOR'S ORGANIZ ATION 02/20/2022 [facility] FOR RECORDS PERTAINING TO PATIENTS WHO ARE OR HAVE BEEN ENROLLED IN A CHEMICAL DEPENDENCY/SUBSTANCEABUSE PROGRAM, SOME INFORMATION MAY BE OMITTED. This clinical summary was aggregated from multiple sources. Caution should be exercised in using it in the provision of clinical care. This summary normalizes information from multiple sources, and as a consequence, information in this document may materially change the coding, format and clinical context of patient data. In addition, data may be omitted in some cases. CLINICAL DECISIONS SHOULD BE BASED ON THE PRIMARY CLINICAL RECORDS. [employer] provides no warranty or guarantee of the accuracy or completeness of information in this document.
[2023-04-10 12:40] LABS: Absolute Lymphocyte Count 1.74 X10^3/uL (0.83-4.51); Absolute Neutrophil Count 4.1 X10^3/uL (2.0-7.7); Basophil# 0.03 X10^3/uL; Basophil% 0.5 % (0-1); Eosinophil# 0.22 X10^3/uL; Eosinophils% 3.4 % (0-5); Hematocrit 45.4 % (37-47); Hemoglobin 15.1 g/dL (12.0-15.0); Lymphocyte # 1.74 X10^3/ul (0.83-4.51); Lymphocyte % 26.6 % (19-41); Mean Corp Hgb Conc 33.3 g/dL (32-36); Mean Corpuscular Hgb 31.6 pg (27.0-32.0); Mean Platelet Vol. 9.6 fl (6.2-12.0); Monocyte# 0.44 X10^3/uL; Monocyte% 6.7 % (0-10); NRBC Flagged by Analyzer 0 % (0-5); Neutrophil % 62.6 % (47-70); Platelet Count 324 K/mm3 (150-450); RBC Distribution Width SD 38.8 fl (35.1-43.9); Red Blood Count 4.78 M/mm3 (4.2-5.4); White Blood Count 6.5 K/mm3 (4.4-11.0)
[2023-04-10 13:26] LABS: AST(SGOT) 12 U/L (15-37); Alanine Aminotransfer ALT/SGPT 20 U/L (13-56); Albumin, Serum 3.8 g/dL (3.2-5.0); Alkaline Phosphatase 38 U/L (45-117); Anion Gap 6 (5-15); BUN 9 mg/dL (7-18); BUN/Creat Ratio 10.5 RATIO (10-20); Chloride 109 mmol/L (98-107); Creatinine, Serum 0.86 mg/dL (0.55-1.02); EST Glomerular Filtration Rate 84 mL/min (>60); Est Glom Filt Rate - Afr Amer 102 mL/min (>60); Globulin 3.9 g/dL (2.2-4.2); Glucose 102 mg/dL (74-106); Potassium 4.2 mmol/L (3.5-5.1); Protein, Total 7.7 g/dL (6.4-8.2); Sodium Level 140 mmol/L (136-145); Thyroid Stim Hormone (TSH) 1.18 uIU/mL (0.358-3.74)
== END | disposition home or self-care (01) ==
LOC: LAB 11:43
PROVIDERS: Referring Provider Student in an Organized Health Care Education/Training Program; Visit Provider Student in an Organized Health Care Education/Training Program
DX: F32.9 Major depressive disorder, single episode, unspecified (principal)
CPT/HCPCS: 36415; 80053; 84443; 85025

== ENCOUNTER 2023-07-09 09:08 | Outpatient (RCR) | payer MEDICAID, SELFPAY ==
--- NOTE | 2023-07-09 10:10 | BH.SGPN.GN ---
Behaviors/Verbalizations/Mental Status: []Pt alert and oriented, casually dressed and groomed. Eye contact good. Motor activity appropriate. Speech within normal limits. Affect congruent, mood anxious and depressed. Thoughts linear, logical, no signs of hallucinations or delusions. Client Response/Progress/Benefit: [] Pt first day in IOP tx, connected with topic of anxiety and participated throughout, providing input and taking notes. Participated throughout interactive discussion defining anxiety and identifying cognitive and physiological symptoms of anxiety. Group discussed how anxiety can prevent them from trying new things. Pt identified physical signs of anxiety as increased heart rate, muscle tension, and sweating. Pt identified safety behaviors as self-harm, shuttng down, and avoidance. Benefited from increased awareness and insight on anxiety and its impact. Pt will continue IOP tx to prevent decompensation, improve daily functioning, and increase coping repertoire. Narrative Note: []
--- NOTE | 2023-07-09 11:15 | BH.SGPN.GN ---
Behaviors/Verbalizations/Mental Status: []Pt alert and oriented, casually dressed and groomed. Eye contact good. Motor activity appropriate. Speech within normal limits. Affect congruent, mood anxious and motivated. Thoughts linear, logical, no signs of hallucinations or delusions. Client Response/Progress/Benefit: [] Pt was an active participant AEB pt providing input and listening attentively to peers. Attentive during psychoeducation on mindfulness coping skills and their impact on reducing anxiety and improving overall mental health wellness. Group was able to identify self-soothing and mind-based coping skills which included: 5-senses, meditation, deep breathing, journaling, thought challenging, and progressive muscle relaxation. Pt also participated with peers in practicing mindfulness skills in session. Pt would like to work on forcing herself to be around loved ones when she wants to avoid and isolate. Appeared to benefit from increasing repertoire of anxiety reduction skills. Pt will continue in IOP tx to prevent decompensation, maintain safety, and improve daily functioning. ? Narrative Note: []
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
--- NOTE | 2023-07-09 11:47 | BH.COMM_ITS ---
Communication Note Communication with Client Communication Note: Met with pt to complete initial paperwork and administer the CSSR-S screening and risk assessment. Pt is moderate per the CSSR-S screening and risk assessment. Pt denies any current active suicidal ideations, but does note chronic passive thoughts ?my who life?. Pt has no history of suicide attempts per her report. She does have a hx of one interrupted attempt via plan to hang self in 2009. Pt is future oriented. No guns at home. No stockpiles of medications. Pt receptive to discussion on reducing access to lethal means. Discussed case with Dr. Garcia and pt will be admitted to [facility] tx with a diagnosis of MDD, recurrent, severe, without psychosis F 33.2
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
--- NOTE | 2023-07-11 09:30 | BH.NA_ITS ---
Physical Data Vital Signs Pulse Rate: 92 Blood Pressure: 143/99 Height/Weight Height: 1.6 m Weight:: 63.503 kg Weight in Pounds: 140.0 lbs Current Medication Compliance Medication Compliance Do you take your medication as prescribed?: Yes Nutritional History Appetite Nutritional Instructions: Describe your appetite:: Fair Additional nutritional information:: Client states she does no regularly weigh herself, but states she does think she has lost some weight recently and notices a decreased appetite. Functional Assessment Sleep Pattern Describe any problems with sleeping: Client states she sleeps about 7-8 hours per night. Sensory/Communication Assess Vision Problems Do you have any vision problems?: Glasses Communication Problems Do you have difficulty understanding what people are saying?: No Medical Problems/History Neurological Conditions Neurological: Other (See comments) (migraines) Genitourinary Conditions Genitourinary: Other (See comments) (history of UTI's) Pain Assessment Do you have acute or chronic pain?: No Family History Family History Other Anxiety Autoimmune disorder Breast cancer CVA (cerebral vascular accident) Depression Mental disorder Psychiatric care Surgical History Surgical History Have you had any surgeries? If so, list type and date:: No Substance Abuse Substance Abuse Please describe substance abuse in the last 30 days:: Client reports some alcohol use socially, 4 drinks per month or less. Client states she is a past cigarette smoker (started in high school) but now only vapes 4-5 times per week. Client states she trialed some drugs in high school, but now only uses marijuana 4-5 times per week. Client states she drinks one latte per day with 3 shots of espresso and no other caffeine. Mental Status Summary Mental Status Significant Findings/Observations on Appearance and Mood:: Client is alert and oriented x 4. Client is casually groomed with good hygiene. Client is cooperative with assessment. Client makes good eye contact. Client's voice has normal rate but a somewhat high volume. Client has a mood congruent affect. Client makes logical associations and has normal processing. Client denies delusions/hallucinations. Client states she has chronic passive suicidal ideations, but denies intent/plan. Suicide Assessment Suicidal Ideation Are you currently or have you been suicidal in the past?: Yes Suicidal Intentional Rating Scale (SIRS): Current suicidal thoughts/No plan/Contracts for safety (chronic passive thoughts, denies having plan/intent) Physician Notification Past Psychiatric History MH Treatment Hx Past Psychiatric Medications:: Prozac and Lamictal last year (states she thinks she was on the highest dose), Latuda, Trintellix, Wellbutrin, Buspar, Zoloft, Abilify Age of first mental health symptoms: Client states she first took medication for anxiety around age 14. Describe (age, circumstance, etc) any past hospitalizations: Client states she was hospitalized for mental health 2 times while in high school, ages 15 and 16. Current providers for mental health treatment (counselor, psychiatrist, case assistant, etc.): Dr. Jacob for psychiatry Fall Risk Assessment Age Age: Less than 60 Mental Status Mental Status: Willing & able to ask for assistance when needed Physical Status Physical Status: No problems Impairments Impairments: None Elimination Elimination: Continent AND independent Gait or Balance Gait or Balance: Walks independently Hx of Falls History of falls in the past 6 months: No known history Medications/Substances Psychotropics:: Antidepressants and Antipsychotics Medications/substances used within the past 24 hours or ordered to administer: 1-2 of the medications/substances listed above Total Score Total Points:: 1 RN Summary of Impressions Impressions Recommendations Impressions: Psychiatric Issues: 1. Major depressive disorder, recurrent, severe without psychosis 2. OCD 3. Generalized anxiety disorder 4. Cluster B traits 5. Primary support, work and financial issues 6. Marijuana use disorder Impression: General Medical Conditions: Client states her BP was lower yesterday when she saw Dr. Jacob and she admits to feeling anxious today. Client states she is establishing PCP care at [facility] next week. Level of Care How do the client's current symptoms and functional deficits support need for this level of care?: Client was referred to [facility] by a friend for panic attacks and OCD tendencies that are affecting her level of functioning. Client moved from [place] back to [place] one year a go and moved in with her parents and states her anxiety and depression have been worse since then. Client states she hasn't had a job in a year. Client states in the past year, her OCD tendencies of cleaning and organizing have taken over my life, which leads to increased anxiety and panic attacks and then to depression, and these feelings keep cycling. Client states she has chronic passive suicidal thoughts, but states she has not had a plan or intent in a long time. Client states she is having panic attacks 2-4 times per week. IOP will promote gains and prevent further decompensation while providing social support and skills training.
[2023-07-11 10:05] VITALS: BP 143/99; PULSE 92
--- NOTE | 2023-07-11 10:10 | BH.SGPN.GN ---
Behaviors/Verbalizations/Mental Status: [] Eye contact is good. Motor activity is appropriate. Appearance is casual. Speech is Appropriate. Mood is anxious/irritable. Affect is congruent. Thoughts are linear and logical. No evidence of psychosis. Client Response/Progress/Benefit: [] Pt receptive to session AEB contributing to small group discussion, as well as listening attentively to others, and taking notes. Worked with group to brainstorm the positive and negative aspects of stress on physical and mental health. Group did well to identify the benefits of stress as well as the impact of distress on performance, relationships, and mental health. Pt identified their personal top stressors as: trying to be normal, goals for the future, mental health, finances, family, and being unemployed. Pt seemed to benefit from increased awareness of current stressors and impact stress has on mental health. Will continue in IOP to maintain safety, increase healthy coping, and improve functioning. Narrative Note: []
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
--- NOTE | 2023-07-11 12:42 | BH.DR.ITP ---
Initial Treatment Plan Patient Information Visit Information: ADMISSION DATE: EXPECTED LOS: 4-6 weeks Problems/Symptoms Problem #1:: Depression Symptom:: Sadness, hopelessness, worthlessness, guilt, biological disruption of appetite, low energy, low motivation, passive thoughts of , passive suicidal ideation, thoughts of self-harm. Problem #2:: Anxiety Symptom:: Worry, panic attacks, rumination
--- NOTE | 2023-07-11 15:01 | BH.MTP_ITS ---
Master Treatment Plan Patient Information Program Physician:: Dr. Krys Sarabia Primary Therapist:: HARRY Hidalgo Psychiatric Diagnoses Psychiatric Diagnoses:: 1. Major depressive disorder, recurrent, severe without psychosis 2. OCD 3. Generalized anxiety disorder 4. Cluster B traits 5. Primary support, work and financial issues 6. Marijuana use disorder Diagnosis Code(s):: F33.2 Estimated LOS Estimated LOS (in weeks):: 6 Problem/Goal #1 Problem/Goal #1 Stated Goal:: Pt will reduce depressive symptoms, lack of motivation, and passive thoughts of due to major depressive disorder Description of Barriers: Pt has significant OCD and intrusive thoughts that is preventing pt from living her life and building relationships. Pt has significant negative core beliefs reinforcing depression. Pt also moved back to her hometown and has limited support outside of her parents. Functional Impact: The patient is a 28-year-old female with a history of depression and anxiety my whole life who was referred by a friend to the [facility] behavioral health IOP for worsening symptoms of depression, anxiety and OCD. The patient last worked in [place] at [employer] for 2 years and this was a very stressful job, resulting in the decline of her mental health and pt moving back to [place] to live with her parents. The patient's mental health has been worsening for the past year and she moved back to this area in August. Pt reports struggling with purposelessness, feeling she is ?in the way? and feeling like a burden to her parents, as well as not knowing who she is. She endorses OCD revolving around spending hours cleaning and organizing and redoing chores and checking them over a lot which can take hours. She also has intrusive thoughts that she has done something wrong and often feels bad about herself as a result. She is a worrier by nature, ruminates negatively, and reports having 3-4 panic attacks per week. Pt reports a hx of self-harming since middle school and currently engages in self-harm by hitting or cutting herself. Shared she often leaves bruises when hitting herself and she most recently did this yesterday, last cut herself 1 month ago. She has never required stitches. She smokes marijuana 3-4 times a week in the form of a joint. She endorses sadness, uncomfortable anxious restlessness at times, hopelessness, worthlessness, anhedonia, decreased appetite, difficulties getting out of bed, low motivation, poor energy, guilt, passive thoughts of , and passive suicidal ideation all of the time. The patient states she always has passive suicidal ideation in the back of my mind and always has had this. She denies plan for suicide, active suicidal ideation, homicidal ideation, hallucinations, delusions or symptoms of franky ever. The patient had bulimia with purging by emesis in high school only and not since. Objectives Objective #1: Stated Objective: Pt will learn and utilize 2-3 healthy coping strategies to better manage depressive symptoms and reduce DSM-5 symptoms for depression. Interventions: Through group and individual sessions, therapist will help pt identify triggers and warning signs of depression and emotional dysregulation including emotional, physical, and behavioral changes. Therapist will teach pt various coping skills to manage her symptoms. Therapist will use cognitive restructuring techniques and help pt gain awareness of negative thoughts that reinforce depressive cycles. Therapist will help pt incorporate mindfulness and emotional regulation skills when dealing with difficult situations. Discharge Criteria: Pt will have met this goal when she can report learning and using at least 2 coping skills to manage depressive symptoms and her DSM-5 scores for depression have decreased. Target Date: 08/24/23 Review Date: 08/01/23 Objective #2: Stated Objective: Pt will identify at least 2-3 negative self-talk messages used to reinforce negative core beliefs, worthlessness, and isolation and replace thoughts with balanced, realistic messages. Interventions: Therapist will help pt identify distorted, negative beliefs about self and replace with more realistic, affirmative messages. Therapist will use CBT and DBT to help pt increase insight to the connection between thoughts, emotions, and behaviors. Therapist will encourage pt to practice thought challenging. Discharge Criteria: Pt will have achieved this goal when can verbalize at least 2 cognitive distortions and effectively replace those thoughts with affirmative messages. Target Date: 08/24/23 Review Date: 08/01/23 Problem/Goal #2 Problem/Goal #2 Stated Goal:: Pt will reduce overall frequency and intensity of anxiety, OCD, and intrusive thoughts so that daily functioning is less impaired. Description of Barriers: Pt has significant OCD and intrusive thoughts that is preventing pt from living her life and building relationships. Pt has significant negative core beliefs reinforcing depression. Pt also moved back to her hometown and has limited support outside of her parents. Functional Impact: The patient is a 28-year-old female with a history of depression and anxiety my whole life who was referred by a friend to the [facility] behavioral health IOP for worsening symptoms of depression, anxiety and OCD. The patient last worked in [place] at [employer] for 2 years and this was a very stressful job, resulting in the decline of her mental health and pt moving back to [place] to live with her parents. The patient's mental health has been worsening for the past year and she moved back to this area in August. Pt reports struggling with purposelessness, feeling she is ?in the way? and feeling like a burden to her parents, as well as not knowing who she is. She endorses OCD revolving around spending hours cleaning and organizing and redoing chores and checking them over a lot which can take hours. She also has intrusive thoughts that she has done something wrong and often feels bad about herself as a result. She is a worrier by nature, ruminates negatively, and reports having 3-4 panic attacks per week. Pt reports a hx of self-harming since middle school and currently engages in self-harm by hitting or cutting herself. Shared she often leaves bruises when hitting herself and she most recently did this yesterday, last cut herself 1 month ago. She has never required stitches. She smokes marijuana 3-4 times a week in the form of a joint. She endorses sadness, uncomfortable anxious restlessness at times, hopelessness, worthlessness, anhedonia, decreased appetite, difficulties getting out of bed, low motivation, poor energy, guilt, passive thoughts of , and passive suicidal ideation all of the time. The patient states she always has passive suicidal ideation in the back of my mind and always has had this. She denies plan for suicide, active suicidal ideation, homicidal ideation, hallucinations, delusions or symptoms of franky ever. The patient had bulimia with purging by emesis in high school only and not since. Objectives Objective #1: Stated Objective: Pt will identify 2-3 anxiety and OCD triggers and 2 coping skills to use to manage anxiety as shown by reducing DSM-5 scores for anxiety and OCD. Interventions: Through group and individual sessions, pt will gain awareness of anxiety and OCD triggers and learn numerous techniques to manage anxiety and OCD symptoms. Therapist will teach mindfulness and other calming techniques to manage symptoms and increase distress tolerance skills. Therapist will also help pt utilize mindfulness skills to sit with the uncomfortable to increase confidence in managing triggers. Discharge Criteria: Pt will have met this goal when pt can identify at least 2 triggers and 2 ways to cope with anxiety and show a reduction of DSM-5 scores for anxiety and OCD. Target Date: 08/24/23 Review Date: 08/01/23 Objective #2: Stated Objective: Pt will improve ability to cope with OCD symptoms and reduce avoidance by setting 1-2 small exposure goals each week. Interventions: Through group and individual therapy, pt will gain skills on distress tolerance and sitting with the uncomfortable. Therapist will help pt set small, realistic exposure goals each week. Therapist will have pt practice these goals both in session and at home. Therapist will provide psychoeducation on why this is important to reducing anxiety, OCD, and phobias. Therapist will also provide psychoeducation on intrusive thinking and reducing safety behaviors. Discharge Criteria: Pt will have accomplished this goal when pt can report accomplishing at least 1 exposure goal per week and can report reduced avoidance overall. Target Date: 08/24/23 Review Date: 08/01/23
--- NOTE | 2023-07-11 15:02 | BH.MDN_ITS ---
Multi-Disciplinary Note Note 30-min Individual: Time Started:: 11:35 Date: 07/11/23 Purpose of session/treatment goals addressed:: Pt was having a panic attack in group session. Met with pt to work through panic and address contributing stressors. Eye Contact:: Good Motor Activity:: Restless Appearance:: Casual Speech:: Pressured Mood:: Anxious and Depressed Affect:: Congruent Thoughts:: Linear, Logical, Racing and No evidence of hallucinations/delusions noted Staff Interventions:: motivational interviewing, psychoeducation on: (behavior activation), mindfulness skills, rapport building, strengths perspective and taught coping skills (grounding skills) Client Response:: Pt entered session crying and hyperventilating, stating ?people think I?m weird and know I don?t belong?. Therapist provided reassurance and emotion validation. Guided pt through several grounding skills including deep breathing, progressive muscle relaxation, and 5-senses. Pt able to calm and discuss triggers leading to her panic. Reports that the group environment had become overstimulating, and she had been struggling earlier in the day with overwhelming negative thoughts. Reports ?My brain just won?t quit. It tells me negative things about myself all the time?. Shared she and her previous outpatient therapist had worked on gratitude and positive affirmations in the past. Shared these skills have had variable effect but that the relationship with herself has been something she?s struggled with lifelong. Insight that struggling with feeling out of place in her parent?s home, lack of purpose, and feelings of aimlessness since moving back to [place] from [place] may be reinforcing depression, negative self-talk, and anxiety. Receptive of working with therapist to improve comfort in the home, such as decorating her room to improve comfort in the environment. Additionally, discussed importance of a regular routine and began discussion on values-based components of behavioral activation and mental health importance of incorporating activities that align with her values into her daily life. Goal for pt to reflect on what her core values may be to begin identifying activities that align. Pt calm and able to return to group. Risks/Concerns:: Pt denies any active SI, plan, or intent as of this date, 07/11/23. Progress Toward Goals/Plan:: Pt second day in IOP tx, therefore limited progress. Pt reports finding the group environment to be supportive and encouraging. She is beginning to incorporate deep breathing into daily life and receptive of beginning to add progressive muscle relaxation. Pt struggles with significant anxiety, negative core beliefs, and unrealistic expectations of herself with reinforce depression and hopelessness. Pt recommended continued IOP tx to improve self-care and self-compassion, reduce anxiety, and prevent decompensation. Time Stopped:: 12:05
--- NOTE | 2023-07-13 09:05 | BH.SGPN.GN ---
Behaviors/Verbalizations/Mental Status: [] Eye contact is good. Motor activity is appropriate. Appearance is casual. Speech is Appropriate. Mood is depressed. Affect is congruent. Thoughts are linear and logical. No evidence of psychosis. Reviewed daily check in sheet and pt reports 3/5 for suicidal thoughts and 0/5 for intent. This is baseline for this week. Therapist checked in with patient after group. Client Response/Progress/Benefit: [] Pt was an active participant in group discussion. Attentive. Daily symptom tracker notes 5/5 for depression, anxiety, and irritability. Struggles to identify mental health wins and healthy habits. Primary stressor is current living arrangement with my parents. Struggling to adjust to sharing space with others stating its tough to be in that space. Emotion for today is out of it.Briefly elaborated on the stressors related to living situation and how it impacts her mental health. Mental health win that she reported was making it through my first week of IOP. Benefited from support, encouragment, and feedback from group. Will continue in IOP to maintain safety, stablize mood, increase healthy coping, and improve functioning. Narrative Note: []
--- NOTE | 2023-07-13 10:15 | BH.SGPN.GN ---
Behaviors/Verbalizations/Mental Status: [] Eye contact is good. Motor activity is appropriate. Appearance is casual. Speech is Appropriate. Mood is depressed and anxious. Affect is congruent. Thoughts are linear and logical. No evidence of psychosis. Client Response/Progress/Benefit: []Pt engaged participant AEB listening to others, engaging in activity, and providing feedback at times. Attentive during psychoeducation and provided insight into obstacles that impede mental wellness. Pt shared with group current mental health reality and desired mental health reality. Stated she would like to get to a place where she feels more present and able to navigate her thoughts rather than be controlled by them. Identified barriers to desired reality include: racing thoughts, negative self-talk, and isolation. Benefited from taking look at current mental health state and obstacles for progress. Pt to continue IOP tx to improve mood stability, reduce reliance on maladaptive coping, and prevent decompensation. Narrative Note: []
--- NOTE | 2023-07-13 11:15 | BH.SGPN.GN ---
Behaviors/Verbalizations/Mental Status: [] Eye contact is good. Motor activity is appropriate. Appearance is casual. Speech is Appropriate. Mood is anxious. Affect is congruent. Thoughts are linear and logical. No evidence of psychosis Client Response/Progress/Benefit: [] Pt was an active participant in group discussion and activity. Worked with group to identify strategies to help overcome barriers and obstacles to desired reality. Group developed strategies for the common barriers. Identified personal barriers to desired reality and choose one obstacle to work. Pt stated she wants to work on barrier of negative self-talk by being kind to herself and giving self compassion. Pt seemed to benefit from increased repertoire of healthy coping skills/strategies to overcome common barriers to moving forward. Pt is to continue IOP to improve distress tolerance, increase healthy coping skills, and prevent decompensation.
--- NOTE | 2023-07-17 09:05 | BH.SGPN.GN ---
Behaviors/Verbalizations/Mental Status: [] Eye contact is poor. Motor activity is appropriate. Appearance is casual. Speech is Appropriate. Mood is anxious. Affect is congruent. Thoughts are linear and logical. No evidence of psychosis. Reviewed daily check in sheet and pt reports 1/5 for suicidal thoughts and 0/5 for intent. Below baseline. Client Response/Progress/Benefit: [] Pt was an active participant in group discussion. Attentive. Emotion for today is anxious. Daily symptom tracker notes 4.5 for anxiety and 3/5 for depression. Able to identify mental health wins and healthy habits. Reports several panic attacks this weekend however did not elaborate on triggers. Despite struggles she notes that she did utilize skills to stop the spiral which is progress. Benefited from group support, encouragement, and feedback. Will continue in IOP to prevent decompensation, increase healthy coping skills, stabilize mood, and improve functioning. Narrative Note: []
--- NOTE | 2023-07-17 10:10 | BH.SGPN.GN ---
Behaviors/Verbalizations/Mental Status: []Eye contact is good. Motor activity is appropriate. Appearance is casual. Speech is Appropriate. Mood is anxious. Affect is congruent. Thoughts are linear and logical. No evidence of psychosis. Client Response/Progress/Benefit: [] Pt was an engaged participant AEB listening attentively to others, taking notes, and providing feedback in small group discussions. Attentive during psychoeducation AEB by note taking and providing some input. Pt worked along with peers in small groups to define inappropriate guilt and appropriate guilt. Interactive discussion on examples of both inappropriate and appropriate guilt. Pt able to connect impact inappropriate guilt can have on MH. Pt gave an example of how she feels appropriate guilt when she lashes out on someone, but then she ruminates, and it becomes inappropriate. Appeared to benefit from increased awareness of guilt and the differences between appropriate and inappropriate guilt. Will continue IOP tx to prevent decompensation, improve daily functioning, and gain distress tolerance skills. ? Narrative Note: []
--- NOTE | 2023-07-17 11:15 | BH.SGPN.GN ---
Behaviors/Verbalizations/Mental Status: []Pt alert and oriented, casually dressed and groomed. Eye contact good. Motor activity appropriate. Speech within normal limits. Affect congruent, mood anxious and depressed. Thoughts linear, logical, no signs of hallucinations or delusions. Client Response/Progress/Benefit: [] Pt engaged participant AEB listening attentively to others and providing input throughout group. Pt worked within their small group to identify strategies to manage inappropriate guilt. Identified a personal example of inappropriate guilt as blaming herself for not engaging with friends as often as she would like. Insight this cues a fear of disappointing others and rejection. Pt wants to work on combatting inappropriate guilt by challenging distortions, maintaining her boundaries, and focusing on self-compassion. Pt seemed to benefit from learning about strategies to manage appropriate and inappropriate guilt. Pt will continue IOP tx to promote mood stability, reduce anxiety safety behaviors, and prevent decompensation. Narrative Note: []
--- NOTE | 2023-07-17 14:24 | BH.MDN ---
Multi-Disciplinary Note Note 30-min Individual: Time Started:: 12:12 Date: 07/17/23 Purpose of session/treatment goals addressed:: Purpose of session was to address treatment plan goal #1 obj #2 and goal #2 obj #1. Eye Contact:: Good (tearful) Motor Activity:: Appropriate Appearance:: Casual Speech:: Appropriate Mood:: Anxious and Depressed Affect:: Congruent Thoughts:: Linear, Logical and No evidence of hallucinations/delusions noted Staff Interventions:: motivational interviewing, psychoeducation on: (mistaken beliefs, intrusive thoughts), rapport building, strengths perspective and goal setting Client Response:: Pt receptive of session, actively engaged throughout. Reports overall finding the IOP program to be helpful and provides her with something to do for the day, as well as hope her sx will improve. Pt discussed having a ?pretty good? but high anxiety weekend, noting that she experienced panic on several occasions. Pt shared that she has been trying to implement more of a routine to her days as she often struggles with knowing what to do with herself since moving back home a year ago. Shared that she is usually ?alright? when out in public but has significant intrusive thoughts that others are looking at or judging her, reinforcing negative thoughts about her body image and self-worth. Expressed that her mental health typically worsens upon returning home as she feels shame and discomfort in the home since returning to her parents? house after living independently. Pt described falling into isolation in her room and obsessive cleaning when home, which often triggers panic and additional negative self-talk messages. Receptive of discussion introducing intrusive thoughts and receptive of beginning to work through the ?Overcoming Unwanted Intrusive Thoughts? book. Plans to read first 2 chapters for homework. Additionally, receptive of psychoeducation on mistaken/negative core beliefs and the impact core beliefs have on one?s identity, perception of the world, and ability to manage mental health sx. Pt reports willingness to complete the Mistaken beliefs assessment and review in next session. Risks/Concerns:: Pt denies any active SI, plan, or intent as of this date, 07/17/23. Progress Toward Goals/Plan:: Pt second week in IOP tx, some but limited progress noted. Pt reports feeling less anxious in the group setting and has not had another panic attack in group since last session. She is utilizing grounding and self-talk skills to manage anxiety when in the group setting. Pt reports beginning to implement some of the skills she is learning and seeing some progress. Pt struggles with significant anxiety and negative core beliefs reinforcing her mental health sx and self-worth. Significant self-deprecation. Pt recommended continued IOP tx to improve self- talk, promote behavior activation skills, reduce anxiety, and prevent decompensation. Time Stopped:: 12:45
--- NOTE | 2023-07-19 09:05 | BH.SGPN.GN ---
Behaviors/Verbalizations/Mental Status: [] Eye contact is good. Motor activity is appropriate. Appearance is casual. Speech is Appropriate. Mood is depressed. Affect is congruent. Thoughts are linear and logical. No evidence of psychosis. Reviewed daily check in sheet and pt reports /10 for suicidal ideations. Client Response/Progress/Benefit: [] Pt was an active participant in group discussion. Attentive. Daily symptom tracker notes 5/5 for depression, 4/5 for anxiety, and 3/5 for irritability. States I'm in my head today. Shared recently increased dissociation. She explained dissociation to peers and elaborated on mindfulness and grounding skills which are beneficial. Dissociation occurs when she is overstimulated or overwhelmed. Primary stressor currently is living with her parents. Pt notes that this is her second week attending IOP and she does get benefit from the program. No progress noted. Benefited from group support, encouragment, and feedback. Will continue in IOP to maintain safety, prevent decompensation, stabilize mood, and improve functioning. Narrative Note: []
--- NOTE | 2023-07-19 10:15 | BH.SGPN.GN ---
Behaviors/Verbalizations/Mental Status: []Pt alert and oriented, neatly dressed and groomed. Eye contact good. Motor activity appropriate. Speech within normal limits. Affect congruent, mood content. Thoughts linear, logical, no signs of hallucinations or delusions. Client Response/Progress/Benefit: [] Pt an active participant throughout. Participated during interactive discussion on defining conflict (internal/external) and possible benefits to conflict. Attentive during psychoeducation on conflict styles and engaged during small group activity in which peers identified the benefits and consequences to each conflict style. Pt identified their primary conflict style as the accommodating and collaborating types which can be beneficial but also cause negative feelings towards self. Pt recognizes that he is also an avoiding type with her mental health which leads to more issues. Benefited from increased awareness of the impact of conflict styles in mental health. Will continue in IOP tx to prevent decompensation, improve daily functioning, and increase self-compassion. ? Narrative Note: []
--- NOTE | 2023-07-19 15:00 | BH.SGPN.GN ---
Behaviors/Verbalizations/Mental Status: [] Eye contact is good. Motor activity is appropriate. Appearance is casual. Speech is Appropriate. Mood is anxious and depressed. Affect is congruent. Thoughts are linear and logical. No evidence of psychosis. Client Response/Progress/Benefit: [] Pt was an active participant in group discussions and activity. Engaged with peers in activity and identifying healthy ways to approach each conflict scenario. Group discussed various conflict resolution skills that can be useful in addressing conflict outside of IOP. Benefited from practicing and learning conflict resolution skills during group activity. Able to identify areas pt wants to work on to improve how pt manages conflict both internally and externally. Expressed wanting to work on reducing use of competing language when addressing internal conflict. Will continue in IOP to stabilize mood, improve functioning in daily life, and prevent decompensation. Narrative Note: []
--- NOTE | 2023-07-20 09:05 | BH.SGPN.GN ---
Behaviors/Verbalizations/Mental Status: [Patient was alert and oriented, appropriately dressed and groomed. Eye contact was fair, motor activity normal, patient did not speak other than stating he did not want to share. Affect and mood unable to be determined due to lack of participation. Thoughts unable to be determined due to lack of participation. Reviewed Patients symptom tracker and the patient reports severe in depressed mood, anxiety/panic attacks, risk of suicide, moderate to severe in agitation/irritability/anger, moderate in thoughts of suicide, and low in self-harm urges. Patient will be checked in on to assess for safety.] Client Response/Progress/Benefit: [ Patient stated she did not want to share during first group. Patient was quiet and respectful to other group members while they shared their mental wins and stressors. Patient will continue with IOP treatment to help develop healthy skills, promote mood stability, and improve distress tolerance. ] Narrative Note: []
--- NOTE | 2023-07-20 10:10 | BH.SGPN.GN ---
Behaviors/Verbalizations/Mental Status: [] Eye contact is good. Motor activity is appropriate. Appearance is casual. Speech is Appropriate. Mood is euthymic. Affect is full. Thoughts are linear and logical. No evidence of psychosis Client Response/Progress/Benefit: [] Pt responded well to session AEB contributing to small group discussion, taking notes, and listening attentively to others. Group defined anger and discussed the benefits of managed anger and anger as a secondary emotion. Pt shared perspective on personal benefits of anger as advocating for self. Pt completed worksheet on anger triggers and personal warning signs of anger. Pt identified a common trigger as perceived or real uneasiness in the house. Appeared to benefit from increased knowledge of the anger cycle as well as personal triggers. Will continue IOP to prevent decompensation, increase healthy coping skills, stablize mood, and improve functioning. Narrative Note: []
--- NOTE | 2023-07-20 11:15 | BH.SGPN.GN ---
Behaviors/Verbalizations/Mental Status: []Client alert and oriented, casually dressed and groomed. Eye contact good. Motor activity appropriate. Speech within normal limits. Affect congruent, mood depressed, anxious. Thoughts linear, logical, no signs of hallucinations or delusions. Client Response/Progress/Benefit: []Pt was engaged throughout AEB contributing to group discussion and self-reflection. Group finished processing cues to anger worksheet. Pt contributed as group brainstormed healthy coping skills for better managing anger which included: music, walking/exercise, taking a break, grounding tools, reflection, and journaling. Pt identified personal anger cycle and was able to make connections on how own thoughts/evaluations of a situation can worsen anger feelings. Stated will work on taking a step away, grounding, and trying to return to the anger trigger with an objective outlook. Pt appeared to benefit from identifying different techniques to manage anger as well as gaining awareness of potential consequences of unmanaged anger. Pt to continue IOP to promote use of healthy coping skills and reduce safety behaviors, challenge distortions, and prevent decompensation. Narrative Note: []
--- NOTE | 2023-07-23 10:10 | BH.SGPN.GN ---
Behaviors/Verbalizations/Mental Status: []Client alert and oriented, casually dressed and groomed. Eye contact good. Motor activity appropriate. Speech within normal limits. Affect congruent, mood depressed and anxious. Thoughts linear, logical, no signs of hallucinations or delusions. Client Response/Progress/Benefit: []Pt engaged in session AEB listening attentively to others and providing input throughout. Pt engaged in activity, able to connect how it can be uncomfortable and difficult to accept when things are out of one?s own control. Pt worked with group to identify what things in life can be hard to accept. Group identified things hard to accept as: change, loss of relationship, mental health diagnosis, other?s behaviors, and finances. Pt identified struggling to accept change which has led to resisting and avoiding it in the past. Seemed to benefit from increased awareness of importance of acceptance. Pt to continue IOP tx to further improve mood stability, application of self-compassion and self-care skills, and prevent decompensation. Narrative Note: []
--- NOTE | 2023-07-23 11:10 | BH.SGPN.GN ---
Behaviors/Verbalizations/Mental Status: []Pt alert and oriented, casually dressed and groomed. Eye contact good. Motor activity appropriate. Speech within normal limits. Affect congruent, mood euthymic. Thoughts linear, logical, no signs of hallucinations or delusions. Client Response/Progress/Benefit: []Pt responded well to session AEB taking notes and contributing to discussion throughout. Pt engaged as group continued discussion on acceptance and the mental health benefits of practicing acceptance. Pt and peers identified what makes acceptance challenging and pt completed a self-reflection exercise on what is hard to accept in pt's life. Pt identified she finds it hard to accept that she can get better. Stated she realizes a lot of the things she finds harder to accept are positive things. Group worked in small groups to identify strategies to increase acceptance. Pt shared she wants to practice using dialectical thinking. Pt appeared to benefit from gaining insight and learning strategies to increase acceptance. Pt will continue IOP tx to challenge distortions, increase healthy coping skills, and prevent decompensation.
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
--- NOTE | 2023-07-25 09:00 | BH.SGPN.GN ---
Behaviors/Verbalizations/Mental Status: [Patient was alert and oriented, appropriately dressed and groomed. Eye contact was poor, motor activity normal, speech within normal limits. Affect congruent, mood anxious. Thoughts linear, logical, no signs of hallucinations or delusions. Reviewed Patients symptom tracker and the patient reports moderate/severe in depressed mood, anxiety/panic attacks, moderate in agitation/irritability/anger, thoughts of suicide, low in self-harm urges/behaviors, and 1-4 on risk of suicide on the [facility] scale.] Client Response/Progress/Benefit: [Patient was engaged and open to the discussion. Patient reported her mood to be ?anxious?. Patients first win is that she went to [employer] yesterday and was walking around the pond when she saw a Mink for the first time. Patients second win was that she read all her unread text messages in her group chat yesterday although she hasn?t had much energy lately. Patients stressor is that her friend is graduating next month and she wants to go to it but is afraid her mental health is not at a place where she would be able to handle herself. Patient was interactive and respectful with other group members about their mental wins and stressors. Patient benefited from the discussion by listening to feedback and giving input on her peer?s stressors and mental health wins. Patient will continue with IOP treatment to help develop healthy skills, promote mood stability, and improve distress tolerance. ] Narrative Note: []
--- NOTE | 2023-07-25 10:10 | BH.SGPN.GN ---
Behaviors/Verbalizations/Mental Status: [] Eye contact is good. Motor activity is appropriate. Appearance is casual. Speech is Appropriate. Mood is anxious and depressed. Affect is congruent. Thoughts are linear and logical. No evidence of psychosis. Client Response/Progress/Benefit: [] Pt was an active participant in group discussions. Attentive during psychoeducation on the 4 communication styles (Passive, Passive-Aggressive, Aggressive, and Assertive) and the obstacles to effective communication. Contributed during interactive discussion on the benefits of communicating effectively which included; having one's needs met, helping, building connection with others, decreases stress and uncertainty, improved relationships, and increased trust. Worked well in small group in which pt and peers identified the benefits and disadvantages to the different communication styles. Pt identified connecting with aspects of each of the communication styles, reports she often aims for assertive communication. Benefited from increased understanding of communication styles and how these can impact effective communication. Will continue in IOP to prevent decompensation, improve mood stability, and improve functioning. Narrative Note: []
--- NOTE | 2023-07-25 11:15 | BH.SGPN.GN ---
Behaviors/Verbalizations/Mental Status: []Pt alert and oriented, casually dressed. Eye contact good. Motor activity appropriate. Speech within normal limits. Affect congruent, mood stressed and agitated. Thoughts linear, logical, no signs of hallucinations or delusions. Client Response/Progress/Benefit: [] Pt responded well to session AEB Pt listening attentively to others and providing input during group discussion on the pay offs and costs of the different communication styles. Pt able to connect how current communication style impacts mental health. Connected with peers? comments about importance of using assertive communication. Pt did well being assertive in the group activity and practiced using assertive communication in the role playing scenarios. Pt helped their group develop assertive communication responses which pt reported helped her be more direct and not over-apologize. Pt seemed to benefit from increasing awareness of healthy strategies to improve communication. Will continue IOP tx to prevent decompensation, gain distress tolerance skills, and improve daily functioning. ? Narrative Note: []
--- NOTE | 2023-07-25 12:22 | PCM.BH.PN ---
Progress Note Progress Note: History of Present Illness/Interim History: Patient is a 28-year-old single female with a history of depression and anxiety who is seen in follow-up at the [facility] behavioral health IOP. The patient also suffers from OCD and panic attacks. I last saw the patient 2 weeks ago and at that time Seroquel had just been added by her outpatient psychiatrist the day before. The patient states that she feels she is learning skills in the IOP. According to staff she has been consistent in attendance and engaged in the program. She states that she continues to have low mood and occasional hopelessness. She is still having 3-4 panic attacks a week but her sleep remains okay at 8 hours a night. She still has occasional passive thoughts of which is chronic for her along with chronic passive suicidal ideation. She denies active suicidal ideation, plan for suicide, homicidal ideation, hallucinations or delusions. Current Psychiatric Medications: [] Nortriptyline 50 mg p.o. daily (x 3 months); Seroquel 50 mg p.o. nightly (x 2 weeks); lorazepam 0.5 mg as needed for panic attack (patient takes it once a week) Mental Status Examination: [] The patient is a 28-year-old female who appears normal for stated age and has 1 nose piercing and wears glasses. She is ambulatory with a normal gait and is casually dressed and groomed with good hygiene. She has no psychomotor agitation or retardation. She is cooperative during the interview. Eye contact is good and speech is normal rate and rhythm and fluent with no pressure. Mood is depressed. Affect is mildly constricted. Thought process is goal-directed and organized. Thought content: There is evidence of chronic passive thoughts of and chronic, passive suicidal ideation. There is no evidence of active suicidal ideation, plan for suicide, homicidal ideation, hallucinations or delusions. Reality testing is intact. Intelligence is average. Judgment is intact. Insight: Some present. Impulsivity: High. Diagnoses: [] 1. Major depressive disorder, recurrent, severe without psychosis 2. OCD 3. Generalized anxiety disorder 4. Strong cluster B traits 5. Primary support, work and financial issues 6. Marijuana use disorder Plan: [] The patient will continue the IOP in behavioral health at [facility] as the structure, support, education and group therapy will hopefully prevent worsening of the patient's symptoms that could require admission to the hospital. She felt safe during the interview and if it anytime she does not feel safe she will let us know or go to the emergency room. The risk, options, possible complications and side effects of the medications were again discussed with the patient and she understands and accepts these. She agrees to increase her Seroquel to 100 mg p.o. nightly to help with her anxiety and panic attacks and depression. Prescription was sent in for this. Patient will continue on nortriptyline at 50 mg p.o. daily.Auvelity is an option for the patient to help treat OCD and depression but the patient does not wish to add another medication to this regimen. May consider increasing nortriptyline to 75 mg at some point but I would want to go higher than that. The patient will continue to follow-up with her outpatient providers and I will see the patient in follow-up while in the program.
--- NOTE | 2023-07-27 09:00 | BH.SGPN.GN ---
Behaviors/Verbalizations/Mental Status: []Pt alert and oriented, casually dressed and groomed. Eye contact good. Motor activity appropriate. Speech within normal limits. Affect constricted, mood depressed. Thoughts linear, logical, no signs of hallucinations or delusions. Reviewed pt?s symptom tracker, no risk for suicidal ideation, plan, or intent 07/27/23. Pt's daily symptom tracker scores for SI were within baseline. Client Response/Progress/Benefit: []Pt responded well to session, attentive and providing support to peers. Pt reports feeling anxious this morning and stated she feels that she has been dissociated for the past few weeks. Pt stated her brain is constantly going and it is uncomfortable. Pt also expressed frustration that she is not getting better in IOP and wants to know when that switch will flip where I stop surviving and start thriving. Pt receptive to group and supervisor cured meats feedback and encouragement. Pt gave herself credit for continuing to be willing and try despite her negative thinking. Pt will continue IOP tx to prevent decompensation, improve distress tolerance skills, and increase application of healthy coping skills. Narrative Note: []
--- NOTE | 2023-07-27 10:15 | BH.SGPN.GN ---
Behaviors/Verbalizations/Mental Status: [] Eye contact is good. Motor activity is appropriate. Appearance is casual. Speech is Appropriate. Mood is euthymic. Affect is congruent. Thoughts are linear and logical. No evidence of psychosis. Client Response/Progress/Benefit: []Client was an active participant during interactive group discussions. Attentive during psychoeducation on the six types of boundaries (physical, emotional, intellectual, sexual, time, and material) AEB note-taking and input. Along with peers contributed to interactive discussion on defining what a boundary is in mental health. Client along with peers identified challenges to setting boundaries which included; lack of self awareness, guilt, generational cycles, fear of disappointing the other person, etc. Client shared personal example of setting a boundary with her parents and how it went well even though she had fears about doing so. Client along with peers identified the benefits to setting boundaries such as increased identify of self, genuine relationships, self-care, and increased confidence. Group discussed the mental health benefits to establishing boundaries at work, school, and home. Client benefited from increased awareness and insight on the importance/benefit to setting health boundaries. Will continue in IOP to prevent decompensation and improve functioning. Narrative Note: []
--- NOTE | 2023-07-27 11:15 | BH.SGPN.GN ---
Behaviors/Verbalizations/Mental Status: []Eye contact is good. Motor activity is appropriate. Appearance is casual. Speech is Appropriate. Mood is euthymic. Affect is congruent. Thoughts are linear and logical. No evidence of psychosis. Client Response/Progress/Benefit: [] Client responded well to session AEB listening attentively to peers, providing some input, as well as taking notes throughout. Client contributed more throughout psychoeducation on different boundary setting styles which is progress as she has struggled to share in prior groups. Reports connecting most with ridged style of boundary setting, identifying that they are that way until they become close with someone then they will tend to get more porous. Participated in group discussion brainstorming various strategies for improving healthy boundary settings, as a group identified practicing in a mirror, starting with easy/small boundaries, and not overly apologizing as strategies to try. Seemed to benefit from increased awareness of how different boundary styles can impact mental health. Will continue IOP tx to increase consistent application of skills, increase self-care and anxiety management, and prevent decompensation. Narrative Note: []
--- NOTE | 2023-07-30 10:15 | BH.SGPN.GN ---
Behaviors/Verbalizations/Mental Status: []Pt alert and oriented, neatly dressed and groomed. Eye contact good. Motor activity appropriate. Speech within normal limits. Affect congruent, mood euthymic. Thoughts linear, logical, no signs of hallucinations or delusions. Client Response/Progress/Benefit: [] Pt responded well to session, contributing to discussion, and engaged during the activity. Group identified the benefits of change which included: increased confidence, improving mental health, and making progress. Worked with the group to identify barriers to change, which included: uncomfortable emotions such as anxiety and fear, lack of energy, worried about what others will think, and fear of the unknown. Pt participated along with group in activity where they identified and discussed the emotions related to change. Pt connected with emotions of feeling torn, anxious, and confused. Benefited from increased awareness and understanding of emotions, benefits, and barriers related to change. Will continue IOP tx to promote mood stability, reduce negative thinking patterns, and improve distress tolerance. Narrative Note: []
--- NOTE | 2023-07-30 11:10 | BH.SGPN.GN ---
Behaviors/Verbalizations/Mental Status: [] Client alert and oriented, casually dressed and groomed. Eye contact good. Motor activity appropriate. Speech within normal limits. Affect congruent, mood depressed and anxious. Thoughts linear, logical, no signs of hallucinations or delusions. Client Response/Progress/Benefit: [] Client responded well to session, attentive. Did well to process activity and work with group to relate the strategies used to overcome barriers in the activity to managing change in own life. Client identified a change they would like to make as actively using thought challenging skills to improve self-confidence. Client identified currently being in preparation stage for this particular change. Client stated their goal is to practice using dialectical thinking daily. Appeared to benefit from identifying a small goal to work towards. Client will continue IOP tx to prevent decompensation, decrease thoughts that lead to depressive and anxiety enducing symptoms and increase overall functioning. Narrative Note: []
--- NOTE | 2023-07-31 09:05 | BH.SGPN.GN ---
Behaviors/Verbalizations/Mental Status: [] Eye contact is good. Motor activity is appropriate. Appearance is casual. Speech is Appropriate. Mood is euthymic. Affect is full. Thoughts are linear and logical. No evidence of psychosis. Reviewed daily check in sheet and pt reports 07/17 for suicidal thoughts. Client Response/Progress/Benefit: [] Pt was an active participant in group discussion. Attentive. Daily symptom tracker notes 08/11 for depression and anxiety. Emotion for today is anxious. Reports feeling out of my body and all over the place. States I'm up here while pointing to her head. Believes she is going through a rough patch and feels lonely. She has stopped reaching out to her friends b/c she believes that she is too negative around them and doesn't want to make them feel sad. Group provided feedback, challenged this cognitive distortion, and encouraged communication strategies to build social supports which was beneficial. Able to idenfiy a mental health win as she as has to work through a panic attack with taking her PRN medication. Will continue in IOP to maintain safety, stabilize mood, and improve functioing. Narrative Note: []
--- NOTE | 2023-08-01 09:00 | BH.SGPN.GN ---
Behaviors/Verbalizations/Mental Status: [] Pt alert and oriented, neatly dressed and groomed. Eye contact good. Motor activity appropriate. Speech within normal limits. Affect congruent, mood euthymic. Thoughts linear, logical, no signs of hallucinations or delusions. Reviewed pt?s symptom tracker, no risk for suicidal ideation, plan, or intent 08/01/23 Client Response/Progress/Benefit: []Pt responded well to session, attentive and listening to peers. Pt reports feeling restless today as pt has some anxious energy but pt stated overall this week has been better for her. Pt reports she went to a bird sanctuary with her mother this week and she felt present and enjoyed her time. Pt felt that being in nature was a good reminder of how helpful it is for me and how present I feel. Pt also gave herself credit for practicing self-compassion and being kind to my younger self instead of judging herself for her past choices. Pt appeared to benefit from reflecting on her application of coping skills and peer feedback. Pt will continue IOP tx to promote mood stability, increase distress tolerance, and improve self-confidence. Narrative Note: []
--- NOTE | 2023-08-01 10:07 | BH.MDN_ITS ---
Multi-Disciplinary Note Note 60-min Individual: Time Started:: 08:26 Date: 08/01/23 Purpose of session/treatment goals addressed:: To address tx plan goal #1 obj #1 and goal #2 obj #2. Eye Contact:: Good Motor Activity:: Appropriate Appearance:: Casual Speech:: Appropriate Mood:: Euthymic and Anxious Affect:: Congruent Thoughts:: Linear, Logical and No evidence of hallucinations/delusions noted Staff Interventions:: motivational interviewing, CBT techniques, strengths perspective and goal setting (created exposure goals) Client Response:: Pt entered session positive and reports she is in a better mood than usual. Attributes this to spending more time outdoors the day before. Pt described going to the [employer] [place] with her parents for her mothers birthday. Shared they had an enjoyable time and she was able to get along with her father without problem as well. Shared feeling more present and experienced fewer ruminating or self-deprecating thoughts throughout the day. Insight that being in nature is an important value of hers and allows her to be more intentional and present. Discussed wanting to spend time outdoors more consistently. Identified a goal to incorporate around 1 hour of time in nature daily. Additionally, described wanting to look into volunteering for a local park to help care for the trails. Went on to discuss a memoire she recently read about someone?s experience in coping with OCD. Pt shared wanting to continue to work on getting comfortable with exposure therapy to reduce her OCD sx as she reports this continues to have an impact on her self-confidence and worth. Receptive of creating a list of potential exposure exercises and rating them on level of discomfort. Pt identified breaking routines as something particularly difficult for her created a goal of changing where she sits each day she attends IOP group sessions to allow herself to sit with discomfort in not establishing a routine. Risks/Concerns:: Client denies any suicidal ideations, plan, or intent as of 08/01/23. Client is future oriented and her mother is a protective factor. Progress Toward Goals/Plan:: Some progress noted. Pt reports improved positivity, improving sense of self-confidence, and more hope than several weeks ago. She is taking more steps to begin working more actively on exposure goals and is improving upon her self-care and ability to engage in activities that align with her values. Pt reports spending time with her father which is a significant step. Continues to struggle with unrealistic expectations of herself, reassurance seeking, poor self-esteem, and negative self-talk. Recommended continued IOP tx to maintain gains, promote further improved mood stability, and prevent decompensation. Time Stopped:: 09:20
--- NOTE | 2023-08-01 10:10 | BH.SGPN.GN ---
Behaviors/Verbalizations/Mental Status: [] Eye contact is good. Motor activity is appropriate. Appearance is casual. Speech is Appropriate. Mood is anxious. Affect is congruent. Thoughts are linear and logical. No evidence of psychosis. Client Response/Progress/Benefit: [] Client responded well to session AEB sharing and listening attentively to others. Group identified types of social support (family, pets, professionals, spiritual, etc) and provided examples of benefits of having social support, including: decreased stress, increased self-esteem, encouragement, distraction, etc. Client also participated in group discussion regarding the barriers to accessing support such as: lack of awareness, lack of trust, and low self-esteem. Client participated in experiential activity illustrating the impact communication, boundaries, and patience play in creating healthy support systems. Client appeared to benefit from increased knowledge of the benefits of social support and greater self-awareness. Will continue IOP to maintain safety, increase healthy coping, and to improve functioning. Narrative Note: []
--- NOTE | 2023-08-01 11:10 | BH.SGPN.GN ---
Behaviors/Verbalizations/Mental Status: [] Client alert and oriented, casually dressed and groomed. Eye contact good. Motor activity appropriate. Speech within normal limits. Affect congruent, mood anxious and dysthymic. Thoughts linear, logical, no signs of hallucinations or delusions. Client Response/Progress/Benefit: [] Client was an active participant throughout AEB contributing to discussion, providing personal examples, and taking notes. Client processed emotions felt in the activity and how they coped in the moment. Client provided input during discussion on the types of support our supports can provide. Client able to identify current support system and barriers that get in the way of using supports by drawing out their own support net. Client reported after identifying what type of supports they receive; they gained awareness that they could benefit from more emotional and tangible supports. Client identified steps to achieve this by challenging herself to ask her emotional supports what more tangible ways of supporting one another could look like. Client shared increasing tangible supports will help them become more more emotionally regulated as well. Client seemed to benefit from identifying the type of support client needs to work on improving. Client recommended to continue IOP tx to promote continued application distress tolerance skills and increase self-compassion skills. Narrative Note: []
--- NOTE | 2023-08-01 14:38 | BH.MTP_ITS ---
Treatment Plan Review Demographics Date of Admission:: 07/09/23 Date of Treatment Plan Review:: 08/01/23 Admitting Diagnoses:: 1. Major depressive disorder, recurrent, severe without psychosis 2. OCD 3. Generalized anxiety disorder 4. Cluster B traits 5. Primary support, work and financial issues 6. Marijuana use disorder Current Diagnoses:: 1. Major depressive disorder, recurrent, severe without psychosis 2. OCD 3. Generalized anxiety disorder 4. Cluster B traits 5. Primary support, work and financial issues 6. Marijuana use disorder Patient Status Patient's Response to Treatment:: Pt is responding somewhat well to IOP tx AEB pt's consistent attendance, report of benefitting from group support and education, and self-report of learning healthy coping skills. Pt is engaged in group sessions, and is doing well to verbally contribute despite reports of anxiety in social settings. Pt reports medication compliance and pt does well with completing homework. Pt does however struggle with consistent application of thought challenging, exposure goals, and positive self-talk. As a result of inconsistent application of skills directed towards addressing negative core beliefs and improving confidence and pleasure, Pt's overall DSM-5 scores have only decreased by 7% since admission. Status of Current Problems and Symptoms: Pt's symptoms of anxiety and depression have decreased since admission and pt reports a reduction in isolation as well, though progress in these areas remain limited given pt inconsistent application of skills outside of the treatment environment. Pt continues to struggle with depression related to accepting her mental health struggles, anxiety related to negative core beliefs and OCD, not feeling connected to herself/her re lationships, and negative thinking patterns. Pt's depression is decreasing, but pt reports ongoing feelings of being a burden, purposelessness, and worthlessness. Progress Problem #1: Problem Name:: depression, hopelessness, and worthlessness. Status of Goals:: Objective 1- in progress. Pt?s DSM-5 scores for depression have decreased 25% since admission. Pt has gained awareness of coping mechanisms that reinforce depression like isolation and self-criticism, and pt has been working on reducing this. Pt has made progress in getting back into activities she enjoys, such as being outdoors and spending time with supports. Pt continues to endorse depressive symptoms such as feeling hopeless, like a burden, and low motivation more than half the days. Objective 2- in progress. Pt is learning about mistaken beliefs and how her self-talk reinforces depression and feelings of worthlessness. Pt continues to struggle with self-compassion and replacing negative self-talk with more affirmative statements. Team Recommendations:: Treatment team recommends pt continue to work on these tx goals. Therapist also encourages pt to increase communication with supports, increased engagement in activities outside the home to improve mood and increase support net, and use of healthy coping skills to manage depression and reduce isolation. Pt was encouraged to continue setting daily goals to reduce isolation and increase motivation as well. Problem #2: Problem Name:: Anxiety, ruminations, avoidance, OCD Status of Goals:: Objective 1- in progress. Per pt?s DSM-5 pt?s anxiety has decreased by 8% since admission. Pt has learned healthy coping skills and does report benefitting from the psychoeducation on intrusive thoughts as well as in group sessions. Pt does however report difficulties in applying the grounding skills she is learning outside of the group setting as well. Objective 2- in progress. Pt reports she has been gaining more awareness of negative th inking patterns and safety behaviors that reinforce anxiety. Pt is continuing to make small strides towards daily exposure goals. Team Recommendations:: Treatment team recommends pt continue to work on these tx goals. Therapist also encourages pt to communicate with supports and reduce self-sabotaging behaviors like isolation and self-deprecation.
--- NOTE | 2023-08-03 09:05 | BH.SGPN.GN ---
Behaviors/Verbalizations/Mental Status: [] Eye contact is good. Motor activity is appropriate. Appearance is casual. Speech is Appropriate. Mood is depressed/anxious. Affect is full. Thoughts are linear and logical. No evidence of psychosis. Reviewed daily check in sheet. Reports increased emotional intensity and lingering thoughts however capable of self-soothing. Reports self-hate and loathing. No intent. Client Response/Progress/Benefit: [] Pt was an active participant in group discussion. Attentive. Daily symptom tracker notes 08/11 for anxiety, depression, and irritability. She reports really bad panic attack this morning related to her physical appearance. I'm not feeling comfortable with myself. Elaborated on struggles with body image which can lead to depression, anxiety, and irritability. I' felt horrible. My head is so loud. She was able to utilize skills to decrease intensity of thoughts and panic this AM. Shared her mindfulness techniques which she used yesterday and this AM. Responded well to group feedback and support. Engaged in discussions with peers. Will continue in IOP to maintain safety, stablize mood, prevent decompensation, and increase healthy coping. Narrative Note: []
--- NOTE | 2023-08-03 10:10 | BH.SGPN.GN ---
Behaviors/Verbalizations/Mental Status: [] Eye contact is fair. Motor activity is appropriate. Appearance is casual. Speech is Appropriate. Mood is anxious. Affect is congruent. Thoughts are linear and logical. No evidence of psychosis. Client Response/Progress/Benefit: [] Pt receptive of session, actively engaged throughout AEB taking notes, providing input, and contributing in small group discussion. Appeared to connect with group topic of automatic thoughts and cognitive distortions and the impact of thought patterns on mental health, coping behaviors, and relationships. This particular group is very heavy on psychoeducation however pt appeared to connect with distortions and how they can impact functioning. Pt appeared to benefit from gaining insight on distorted thinking patterns and how this impacts overall mental health. Will continue IOP to increase consistent use of healthy coping skills, challenge distortions, and prevent decompensation.
--- NOTE | 2023-08-03 11:10 | BH.SGPN.GN ---
Behaviors/Verbalizations/Mental Status: []Pt alert and oriented, neatly dressed and groomed. Eye contact good. Motor activity restless. Speech within normal limits. Affect congruent, mood distressed. Thoughts linear, logical, no signs of hallucinations or delusions. Client Response/Progress/Benefit: [] Pt was an active participant during group discussion. Pt was placed in a smaller group and participated in combatting example distortions with peers. Pt was engaged in the smaller group, participated in group interactions to brainstorm answers, and appeared to be comprehending cognitive distortions. Stated they connect a lot with shoulds, jumping to conclusions, all or nothing thinking, and catastrophizing. Pt gave an example of catastrophizing when she spills coffee. Benefited from gaining further insight and awareness of cognitive distortions as well as practicing ways to reframe and challenge thoughts. Pt was tearful during group, but she was able to regulate her emotions. Will continue in IOP tx to prevent decompensation, improve self-compassion, and increase distress tolerance skills. ? Narrative Note: []
--- NOTE | 2023-08-06 09:05 | BH.SGPN.GN ---
Behaviors/Verbalizations/Mental Status: [] Eye contact is good. Motor activity is appropriate. Appearance is casual. Speech is Appropriate. Mood is depressed. Affect is congruent. Thoughts are linear and logical. No evidence of psychosis. Reviewed daily check in sheet and pt reports fleeting thoughts on SI scale and denies any risk. Client Response/Progress/Benefit: [] Pt was an active participant in group discussion. Attentive. Emotion for today is anxious. Daily symptom tracker notes 4/5 for anxiety and 3/5 for depression. Able to identify mental health wins and healthy habits. Discussed her horrible day on Sunday with sharon that her whole weekend will be ruined. Able to utilize skills to change perspective and mood. She did not isolate and followed through with social plans which was beneficial. Increased confidence as she did not have a panic attacks while in a social setting. She continues to struggle with significant anxiety, depression, and self-harm urges. Reports feeling uncomfortable with herself everyday and is hopeless about her future. Benefited from group support, enocuragment, and feedback. Will continue in IOP to maintain safety, stabilize mood, increase healthy coping skills, and to improve functioing. Narrative Note: []
--- NOTE | 2023-08-06 10:15 | BH.SGPN.GN ---
Behaviors/Verbalizations/Mental Status: []Pt alert and oriented, neatly dressed and groomed. Eye contact good. Motor activity appropriate. Speech within normal limits. Affect congruent, mood euthymic. Thoughts linear, logical, no signs of hallucinations or delusions. Client Response/Progress/Benefit: [] Pt was engaged and an active participant in group discussions. Attentive during psychoeducation and participated in group activity. Group discussed what contributes to a person?s perspective and how perspective can positively or negatively impact mental health treatment. Participated in group discussion on things that can interfere with perspective and pt reflected on their perspective today vs when they started IOP. Pt stated her perspective is more negative ?in regards to the world and myself? but pt is trying to let herself have hope instead of ?robbing myself of hope.? Pt appeared to benefit from increasing awareness of different perspectives and how they can affect mental health. Pt will continue IOP tx to prevent decompensation, improve daily functioning, and increase distress tolerance skills. ? Narrative Note: []
--- NOTE | 2023-08-06 11:15 | BH.SGPN.GN ---
Behaviors/Verbalizations/Mental Status: []Pt alert and oriented, casually dressed and groomed. Eye contact good. Motor activity appropriate. Speech within normal limits. Affect congruent, mood content and anxious. Thoughts linear, logical, no signs of hallucinations or delusions. Client Response/Progress/Benefit: []Pt was attentive and contributed to group discussion. Pt worked with group to identify strategies that can help with challenging negative perspective. Pt completed strengths exploration worksheet, identifying empathy, open-mindedness, love, and creativity as personal strengths. Pt able to acknowledge how these strengths are helping pt and can continue to help pt in mental health journey. Pt identified wanting to work on leaning on her strength of love to begin practicing treating herself with loving kindness. Benefited from identifying personal strengths and strategies for enhancing use of identified strengths. Pt will continue IOP tx to work on application of distress tolerance skills, improve mood stability, and prevent decompensation. Narrative Note: []
--- NOTE | 2023-08-06 14:55 | BH.MDN ---
Multi-Disciplinary Note Note 45-min Individual: Time Started:: 12:05 Date: 08/06/23 Purpose of session/treatment goals addressed:: To address tx plan goal #1 obj #1 & obj #2, as well as goal #2 obj #1. Eye Contact:: Good (tearful) Motor Activity:: Appropriate Appearance:: Casual Speech:: Appropriate Mood:: Anxious and Dysthymic Affect:: Congruent Thoughts:: Linear, Logical and No evidence of hallucinations/delusions noted Staff Interventions:: motivational interviewing, CBT techniques, strengths perspective, completed risk assessment / safety planning (created a self-harm coping plan) and goal setting Client Response:: Pt receptive of session, actively engaged throughout. Reports having a ?really good day? the previous date and believes this is due to challenging herself to spend time with a friend, despite urges to cancel their plans. Reports that she instead advocated for adjusting their plans so that they were more supportive of her mental health needs. Explained that being in large crowds and having a lot of things planned for specific times can be overwhelming and cause unnecessary additional stress for pt. Instead, pt reports spending time at [facility] enjoying the weather and lounging. Insight that by advocating for less stimulating plans, she was able to successfully prevent experiencing panic throughout the entire day. Pt identified that she would like to be more intentional about making plans with friends so that she is not only reaching out in times of need, but also spending time with them while doing well. Reports plans to schedule specific dates and times for hanging out to aid in holding herself accountable. Shared that this would also aid in challenging thoughts of being an inconvenience as she will more easily be able to remind herself that not all of her interactions with friends are to ?put out fires?/ask for support. Went on to describe continuing to struggle with self-compassion and cultivating a healthier relationship with herself. Disclosed recently engaging in self-harm via hitting herself in the head when unable to prevent racing thoughts from escalating to point of panic. Pt was receptive of alternatives to self-harm and connected with pairing a distress tolerance skill, such as taking a cold shower or progressive muscle relaxation, will a self-compassion affirmation. Plans to write these on index cards to reduce likelihood of not knowing what to say. Plans to practice throughout each day so she is is used to these exercises when a self-harming urge arises. Pt noted improving in her willingness to practice positive self-talk and provided an example of using mindfulness and telling herself ?I see how hard you?re trying and I?m really proud of you? following a panic attack she had over the weekend. Reports feeling proud of her ability to implement compassionate affirmations and would like to work up to telling herself ?I love you in the mirror?. Risks/Concerns:: Denies SI, plan, or intent as of this date 08/06/23. Did disclose recent self-harming via bruising herself. Denies cutting or other forms of self-harm. Denies continued urges and willing to create a self-harm coping plan. Progress Toward Goals/Plan:: Progress remains variable. Improvements in reaching out to supports, advocating for mental health needs, and working on small exposure goals. Pt does however continue to struggle with minimizing progress, significant negative self-talk, and self-reports I feed into my anxiety and panic and let it take me to crisis. Receptive of creating plans to implement grounding skills more intentionally when recognizing warning signs for anxiety and OCD sx. Additionally receptive of more consistent application of self-compassion statements. Recommended continued IOP tx to promote healthier means of managing distress, reduce negative self-talk, and improve ability to function in daily life. Time Stopped:: 12:43
--- NOTE | 2023-08-07 09:05 | BH.SGPN.GN ---
Behaviors/Verbalizations/Mental Status: [] Eye contact is poor. Motor activity is appropriate. Appearance is casual. Speech is Appropriate. Mood is depressed. Affect is congruent. Thoughts are linear and logical. No evidence of psychosis. Reviewed daily check in sheet and according to [facility] ideations scale pt reports fleeting thoughts and being able to use healthy coping and grounding skills. Denies overall risk of suicide. Client Response/Progress/Benefit: [] Pt was an active participant in group discussion. Attentive. Daily symptom tracker notes 4/5 for depression/anxiety and a 2/5 for self-harm urges. Reports feeling disconnected and anxious today. I feel uncomfortable in my body. Self-images ruminations this AM. Negative self-talk and thoughts. Able to identify mental health wins and skills used. Reports setting healthy boundaries and learning to be kinder to myself. She elaborated on how these skills have been beneficial to her mental health. Variable progress. Continues to struggle with mental health on daily basis. Benefited from group support, encouragement and feedback. Will continue in IOP to maintain safety, stabilize mood, increase health coping, and improve functioning. Narrative Note: []
--- NOTE | 2023-08-07 10:10 | BH.SGPN.GN ---
Behaviors/Verbalizations/Mental Status: []Eye contact is fair. Motor activity is appropriate. Appearance is casual. Speech is Appropriate. Mood is anxious. Affect is congruent. Thoughts are linear and logical. No evidence of psychosis. Client Response/Progress/Benefit: []Pt participated during the group discussion. Attentive during psychoeducation and actively engaged during experiential activity. Participated during interactive discussion on aspects of fixed mindset. Group identified several aspects of fixed mindset which include: inflexible, belief that one cannot grow, absolute thinking, and all of one's skills, traits, and behaviors can't change. Group identified personal examples of fixed thinking in which pt shared personal fixed thoughts as: I am here just to suffer and I have to prove my worth that I deserve love and should be here. Benefited from increased understanding of personal fixed mindsets and how they can impact mental health. Will continue in IOP to improve distress tolerance, challenge distortions, and prevent decompensation.
--- NOTE | 2023-08-07 11:10 | BH.SGPN.GN ---
Behaviors/Verbalizations/Mental Status: []Pt alert and oriented, casually dressed and groomed. Eye contact good. Motor activity appropriate. Speech within normal limits. Affect congruent, mood content. Thoughts linear, logical, no signs of hallucinations or delusions. Client Response/Progress/Benefit: [] Pt was an active participant during activity and discussion. Pt did well to remain attentive and participate as group worked on identifying characteristics and benefits of adopting a growth mindset. Worked with fellow participants in reframing the example fixed thoughts into growth mindset thoughts. Pt worked on changing own fixed thought and reframed the thought to ?I may have moments, but my worth is always fixed and inherent.? Pt appeared to benefit from challenging own thoughts and engaging in the activity. Pt will continue IOP tx to increase distress tolerance skills, increase self-compassion, and combat negative thinking patterns. ? Narrative Note: []
== END 2023-08-07 23:59 ==
LOC: BHIOP 09:08
PROVIDERS: Referring Provider Psychiatry & Neurology Psychiatry; Visit Provider Psychiatry & Neurology Psychiatry
DX: F33.2 Major depressive disorder, recurrent severe without psychotic features (principal); F42.9 Obsessive-compulsive disorder, unspecified; F41.1 Generalized anxiety disorder; F12.90 Cannabis use, unspecified, uncomplicated; Z79.899 Other long term (current) drug therapy
CPT/HCPCS: 90792; 99214; H2012; H2020; S9480; T1002; 90832; 90834; 90837

== ENCOUNTER → 2023-07-17 | Outpatient (CLI) | payer MEDICAID, SELFPAY ==
[2023-07-17 13:28] LABS: Absolute Lymphocyte Count 2.47 X10^3/uL (0.83-4.51); Absolute Neutrophil Count 4.9 X10^3/uL (2.0-7.7); Basophil# 0.03 X10^3/uL; Basophil% 0.4 % (0-1); Eosinophil# 0.36 X10^3/uL; Eosinophils% 4.3 % (0-5); Hematocrit 42.3 % (37-47); Hemoglobin 14.2 g/dL (12.0-15.0); Lymphocyte # 2.47 X10^3/ul (0.83-4.51); Lymphocyte % 29.8 % (19-41); Mean Corp Hgb Conc 33.6 g/dL (32-36); Mean Corpuscular Hgb 31.6 pg (27.0-32.0); Mean Platelet Vol. 9.5 fl (6.2-12.0); Monocyte# 0.46 X10^3/uL; Monocyte% 5.5 % (0-10); NRBC Flagged by Analyzer 0 % (0-5); Neutrophil # 4.94 X10^3/uL (2.7-7.7); Neutrophil % 59.6 % (47-70); Platelet Count 341 K/mm3 (150-450); RBC Distribution Width CV 11.2 % (11.6-14.6); RBC Distribution Width SD 38.5 fl (35.1-43.9); White Blood Count 8.3 K/mm3 (4.4-11.0)
[2023-07-17 13:55] LABS: Vitamin D,25 Hydroxy 22.5 ng/mL
[2023-07-17 15:30] LABS: AST(SGOT) 14 U/L (15-37); Alanine Aminotransfer ALT/SGPT 26 U/L (13-56); Albumin, Serum 3.8 g/dL (3.2-5.0); Alkaline Phosphatase 37 U/L (45-117); Anion Gap 9 (5-15); BUN 6 mg/dL (7-18); BUN/Creat Ratio 7.7 RATIO (10-20); Calcium,Total 9.1 mg/dL (8.5-10.1); Chloride 108 mmol/L (98-107); Cholesterol 203 mg/dL (200); Creatinine, Serum 0.78 mg/dL (0.55-1.02); EST Glomerular Filtration Rate 94 mL/min (>60); Est Glom Filt Rate - Afr Amer 114 mL/min (>60); Globulin 3.7 g/dL (2.2-4.2); Glucose 103 mg/dL (74-106); Potassium 3.5 mmol/L (3.5-5.1); Protein, Total 7.5 g/dL (6.4-8.2); Sodium Level 138 mmol/L (136-145)
== END | disposition home or self-care (01) ==
PROVIDERS: Student in an Organized Health Care Education/Training Program; PCP Internal Medicine; Referring Provider Internal Medicine; Visit Provider Internal Medicine
DX: E55.9 Vitamin D deficiency, unspecified (principal); F32.9 Major depressive disorder, single episode, unspecified; F41.1 Generalized anxiety disorder
CPT/HCPCS: 36415; 80053; 82306; 82465; 83036; 85025

== ENCOUNTER 2023-08-08 06:32 | Outpatient (RCR) | payer MEDICAID, SELFPAY ==
[2023-08-08 00:29] VITALS: BP 143/99; PULSE 92
--- NOTE | 2023-08-10 10:20 | BH.SGPN.GN ---
Behaviors/Verbalizations/Mental Status: []Pt alert and oriented, casually dressed and groomed. Eye contact poor. Motor activity appropriate. Speech within normal limits. Affect congruent, mood depressed and engaged. Thoughts linear, logical, no signs of hallucinations or delusions. ? Client Response/Progress/Benefit: []Pt responded well to session, attentive and engaged. Pt participated in activity where pts had to guess the celebrity with a known mental health diagnosis and this led to discussion on self-stigma. Group participated in the discussion defining stigma as well as what stigma has kept pt's from doing in their lives. Pt stated mental health stigma has led pt to be fearful, lack effort and trying, and not want to get help in the past. Pt has been working on overcoming internal and societal stigma, and acknowledged that internal stigma has been harder to combat. Pt worked with peers to begin discussion of what reinforces stigma and this was discussed further in the next group. Pt appeared to benefit from learning about the different types of stigma as well as gaining awareness of how stigma as personally impacted pt. Pt will continue IOP tx to promote mood stability, combat distortions, and increase use of healthy coping skills. Narrative Note: []
--- NOTE | 2023-08-10 11:15 | BH.SGPN.GN ---
Behaviors/Verbalizations/Mental Status: []Client alert and oriented, casually dressed and groomed. Eye contact good. Motor activity appropriate. Speech within normal limits. Affect congruent, mood euthymic and anxious. Thoughts linear, logical, no signs of hallucinations or delusions. Client Response/Progress/Benefit:?[] Client engaged participant AEB participating in the activity, providing input during small group discussion, and listening attentively to others. Client appeared to connect with discussion in the benefits of addressing mental health stigma which included: improved relationships, increased willingness to seek help, increased happiness, and improved confidence. Group brainstormed strategies to combat social and perceived stigma. ?Client shared one thing she can personally do to combat stigma is to decrease how often she apologizes for who she is to others. Appeared to benefit from increasing awareness of strategies to combat stigma. Will continue IOP tx to improve distress tolerance, continue practicing healthy coping skills, and prevent decompensation.
--- NOTE | 2023-08-13 09:05 | BH.SGPN.GN ---
Behaviors/Verbalizations/Mental Status: [] Eye contact good. Motor activity appropriate. Speech within normal limits. Affect congruent, mood dysthymic and anxious. Thoughts linear, logical, no signs of hallucinations or delusions. Reviewed client?s symptom tracker, denies SI, plan, or intent as of 08/13/2023. Client Response/Progress/Benefit: [] Client receptive of session, attentive and willing to process with group. Identified mental health ?wins? today as going out to dinner with her family for her mom?s birthday. 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 Pt shared worrying people she knew would ask her about her life and what she is doing and she would not know what to say. Discussed doing well to challenge these thoughts and sit with the uncomfortable. Several group participants could relate and provided supportive feedback. Additional win noted as challenging herself to pick an outfit and commit to it rather than feeding into distorted thoughts about her self-image. Shared this has been a lifelong struggle for her and she felt proud managing it. Current stressor noted as general increased anxiety over the past week. Did well to identify several skills she can utilize to continue to improve her ability to manage and self-reflected upon limited application of coping skills without external encouragement. Receptive of suggestions by the group. Recommended continued IOP tx to continue to promote mood stability, as well as consistent skill application, and prevent decompensation. Narrative Note: []
--- NOTE | 2023-08-13 10:10 | BH.SGPN.GN ---
Behaviors/Verbalizations/Mental Status: [] Eye contact is good. Motor activity is appropriate. Appearance is casual. Speech is Appropriate. Mood is anxious. Affect is congruent. Thoughts are linear and logical. No evidence of psychosis. Client Response/Progress/Benefit: [] Client receptive to session AEB providing input throughout, listening attentively to others, and taking notes. Attentive throughout psychoeducation on the cognitive triangle and maintenance cycles. Engaged in group discussion reviewing the impact of daily activities and behaviors in either reinforcing unhealthy maintenance cycles and depression or assisting in reducing symptoms (?down? vs ?up? activities). Client identified common ?down? activities they engage in as: isolating and not eating. Common ?Up? activities client identified included: wathcing comfort shows and being in nature. Appeared to benefit from increased awareness of current behaviors and impact these have on mental health. Will continue in IOP to stabilize mood, maintain safety, increase healthy coping, and improve functioning. Narrative Note: []
--- NOTE | 2023-08-13 11:10 | BH.SGPN.GN ---
Behaviors/Verbalizations/Mental Status: []Eye contact is good. Motor activity is appropriate. Appearance is casual. Speech is Appropriate. Mood is euthymic. Affect is congruent. Thoughts are linear and logical. No evidence of psychosis. Client Response/Progress/Benefit: [] Pt responded well to session, attentive and engaged in group discussions and activity. Group discussed values and the benefits that knowing one's values can have on one's mental health. Pt explored own values and identified personal top values. Pt stated a personally important value is mental and emotional health. Pt set a goal to improve engagement in this value. Goal identified as vocalizing a genuine truth that counters the negative thought. Pt appeared to benefit from exploring values and creating a weekly goal. Pt also reported benefitting from the activity and the group encouragement today. Will continue in IOP to improve distress tolerance, increase confidence, and prevent decompensation.
--- NOTE | 2023-08-13 13:39 | BH.MDN_ITS ---
Multi-Disciplinary Note Note 30-min Individual: Time Started:: 09:07 Date: 08/13/23 Purpose of session/treatment goals addressed:: To address tx plan goal #1 obj #2 and goal #2 obj #1 & #2. Eye Contact:: Good (tearful at times throughout) Motor Activity:: Appropriate Appearance:: Neat and Casual Speech:: Appropriate Mood:: Anxious and Dysthymic Affect:: Congruent Thoughts:: Linear, Logical and No evidence of hallucinations/delusions noted Staff Interventions:: thought challenging, motivational interviewing, CBT techniques (reviewed patients OCD maintenance cycle), strengths perspective, goal setting (ERP goal) and taught coping skills (reviewed grounding skills) Client Response:: Pt receptive of session, actively engaged throughout. Reports feeling more anxious over the past two weeks and fears she is not making as much progress as she ?should? be. Described a ?meltdown? she had on Sunday after group when discovering paw prints from her cat on the sofa. Shared this led to thoughts that ?everything id dirty? and she is ?dirty. Reports engaging in safety behavior of overcleaning the entire house, despite rationally knowing this is reinforcing her OCD maintenance cycle. Shared she was eventually able to calm down and continue with the rest of the day, but struggled with embarrassment and shame surrounding the event. Insight that her safety behaviors feel ?comfortable? and provide some emotional relief in the moment but result in worsening sx long-term. Receptive of discussion reviewing benefits of exposure- response therapy to improve comfort and reduce safety behaviors. Worked with therapist to create an exposure goal surrounding pt?s cleaning ritual when returning home for the day. Pt reports willingness to try to solely complete her cleaning routine in her bedroom and challenge herself to not pick-up any other rooms in the house. Plans to do this twice this week. Went on to note feeling she is doing well with goals associated with improving her relationships with others and engaging in more activities outdoors that she enjoys but continues to struggle specifically with addressing her internal dialogue and practicing self- compassion. Reports that using thought challenging and self-compassionate statements feel ?false? or ?phony?, as she believes she is inherently ?broken? and ?irredeemable?. Experiences thoughts of ?What?s the point? or ?why bother trying? when attempting to challenge her thoughts post-panic attack. Receptive of beginning with statements that feel more acceptable in those moments, such as ?Wow, that was really hard. I am okay though.? Receptive of practicing pairing these statements with grounding skills following moments of increased anxiety throughout the week. Risks/Concerns:: Client denies any suicidal ideations, plan, or intent as of 08/13/23. Client is future oriented and able to identify protective factors. Progress Toward Goals/Plan:: Progress remains variable. Pt continues to report feeling she is not making progress, this continues to be reinforced by her negative core beliefs, poor self-talk, and unrealistic expectations of herself. Pt is often resistant to applying skills, specifically challenging herself to step outside of her comfort zone and engage in consistent exposure goals, or practice positive affirmations stating that they feel phony or fake. Pt has however made progress in improved self-care, increased engagement in activities she enjoys, spending time with supports, and continued increased engagement in the treatment environment. Pt?s ongoing overidentification with her mental health diagnoses remain a barrier to focusing on her own mental health needs. Recommended continued IOP tx to improve mood stability and confidence, reduce safety behaviors, and prevent decompensation. Time Stopped:: 12:37
--- NOTE | 2023-08-14 09:00 | BH.SGPN.GN ---
Behaviors/Verbalizations/Mental Status: [] Client alert and oriented, casual appearance. Eye contact good. Motor activity appropriate. Speech within normal limits. Affect congruent, mood sad. Tearful. Thoughts linear, logical, no signs of hallucinations or delusions. Reviewed client?s symptom tracker, client reports chronic passive thoughts of denies current intention or plan. This is lower than client's baseline. Client Response/Progress/Benefit: [] Client responded well to session AEB listening to others and sharing thoughts/feelings. Client shared feeling sad and down today because she found out yesterday that her cat has a mass in his stomach. Client tearful when talking about how important this Is to her and feeling anxious about the thought of losing her support cat. Client stated she did have a panic attack after finding out about the mass but was able to ask her mom for support. Client noted positive as feeling the stress of this medical issue with her cat better than she would have in the past. Client stated she was able to do some line for reflection and mindfulness to help manage emotions. Appeared to benefit from support from peers. Will continue IOP tx to improve distress tolerance, promote utilization of healthy coping skills consistently, and prevent decompensation. Narrative Note: []
--- NOTE | 2023-08-14 10:05 | BH.SGPN.GN ---
Behaviors/Verbalizations/Mental Status: []Eye contact is good. Alert and oriented. Motor activity is appropriate. Appearance is casual. grooming is appropriate. Speech is Appropriate. Mood is anxious and depressed. Affect is congruent. Thoughts are linear and logical. No evidence of psychosis or hallucinations. Client Response/Progress/Benefit: []Client an active participate AEB providing contributions, listening attentively to others, and taking notes throughout. The group identified the impact of emotions on communication such as change in tone, body language, shutting down, misperceiving the communication, and willingness to communicate. Client shared struggling with shutting down when experiencing increased anxiety and sadness. During group activity, client did well to challenge herself to participate and reflected on feeling anxious when trying to communicate instructions to fellow participants in order to accomplish the group goal. Client benefited from session by gaining an increased understanding on the importance of managing emotions to improve daily functioning. Client will continue IOP to further improve mood stability, improve use of skills for better symptom management, and prevent decompensation. Narrative Note: []
--- NOTE | 2023-08-14 11:05 | BH.SGPN.GN ---
Behaviors/Verbalizations/Mental Status: []Pt alert and oriented, casually dressed and well groomed. Eye contact good. Motor activity appropriate. Speech within normal limits. Affect congruent, mood anxious. Thoughts linear, logical, no signs of hallucinations or delusions. Client Response/Progress/Benefit: [] Pt engaged in session AEB Pt listening attentively to peers and providing input. Attentive during psychoeducation on 4 zones of regulation. Pt able to identify feelings and behaviors for each zone. Pt identified coping skills one can use to support self in each zone. Identified being in the blue zone when she came to IOP today, but now pt feels more in the green zone. Pt reports being willing to connect with peers and ?allowing myself to feel a different emotion helped.? ?Benefited from increased education on zones of regulation or stages of alertness for emotions and healthy coping skills to use for each zone. Will continue IOP tx to improve distress tolerance, reduce negative thinking patterns, and prevent decompensation. Narrative Note: []
--- NOTE | 2023-08-15 09:05 | BH.SGPN.GN ---
Behaviors/Verbalizations/Mental Status: [] Eye contact is good. Motor activity is appropriate. Appearance is casual. Speech is Appropriate. Mood is depressed. Affect is congruent. Thoughts are linear and logical. No evidence of psychosis. Reviewed daily check in sheet and pt reports lingering thoughts of suicide however being capable of self-soothing. Denies any risk. Client Response/Progress/Benefit: [] Pt was an active participant in group discussion. Attentive. Daily symptom tracker notes 5/5 for anxiety/depression and 3/5 for irritability and self-harm urges. Pt reports feeling detached and states my mind is elsewhere. Frustration related to the slow process that is typical of progress in mental health and the medication game. Elaborated on current psychosocial stressors and how they are impacted her mental health. She notes positive feedback from her parents on how her progress and how she is coping with stressors, however she is having a hard time acknowledging progress and positive feedback. Benefited from group support, encouragement, and feedback. Will continue in IOP to maintain safety, stablize mood, increase healthy coping, and improve functioning. Narrative Note: []
--- NOTE | 2023-08-15 10:10 | BH.SGPN.GN ---
Behaviors/Verbalizations/Mental Status: []Pt alert and oriented, neatly dressed and groomed. Eye contact good. Motor activity appropriate. Speech within normal limits. Affect congruent, mood euthymic. Thoughts linear, logical, no signs of hallucinations or delusions. Client Response/Progress/Benefit: []Pt active participant AEB pt providing input throughout group discussion. Showed engagement during small group discussions and worked with group on identifying how each defense mechanism can impact mental health and gave examples. Pt was engaged during small group discussion and expressed connecting with several of the defense mechanisms reviewed. Pt reported connecting with sublimation, humor, intellectualization, denial, anticipation, and projection. ?Seemed to benefit from gaining awareness about the different defense mechanisms. Pt to continue IOP tx to promote mood stability, reduce negative thinking patterns, and improve distress tolerance skills. Narrative Note: []
--- NOTE | 2023-08-15 11:10 | BH.SGPN.GN ---
Behaviors/Verbalizations/Mental Status: []Pt alert and oriented, neatly dressed and groomed. Eye contact good. Motor activity appropriate. Speech within normal limits. Affect congruent, mood focused. Thoughts linear, logical, no signs of hallucinations or delusions. Client Response/Progress/Benefit: [] Pt responded well to session, participating in activity and small group discussion. Group reviewed the rest of the defense mechanisms and discussed how these are adaptive, maladaptive, or somewhere in the cano. Pt participated in the experiential activity which encouraged pts to draw a castle that portrayed their different defense mechanisms. Pt's defense mechanisms included projection, humor, sublimation, and suppression. Pt identified many of her defense mechanisms as ?cano? as sometimes they help her and other times, they cause her harm. Pt stated she wants to work on ?being patient with myself while navigating my defense mechanisms.? Pt listened to conference concierge teach different skills to help pt?s cope with or change their defense mechanisms. Pt appeared to benefit from gaining insight to the different defense mechanisms and learning coping skills. Pt will continue IOP tx to promote mood stability, combat distortions, and improve self-compassion. ? Narrative Note: []
--- NOTE | 2023-08-15 12:08 | PCM.BH.PN ---
Progress Note Progress Note: History of Present Illness/Interim History: The patient is a 28-year-old single, female with a history of depression and anxiety and OCD who is seen in follow-up at the [facility] behavioral health IOP. I last saw the patient 3 weeks ago and at that time her Seroquel was increased to 100 mg nightly. The patient has been consistent and engaged in the program according to staff but has not made much progress. The patient states she has had a lot of stress especially due to the fact that she found out her cat is sick with probable cancer and a big mass in its stomach. The patient has been very upset about this and found out a few days ago. She still has her intrusive thoughts and rituals around cleanliness and hygiene. She has panic attacks about once a day still with the usual panic attack symptoms that can sometimes result in a meltdown. She still has chronic passive thoughts of and chronic passive suicidal ideation which is baseline for her. She denies active suicidal ideation, plan for suicide, homicidal ideation, hallucinations or delusions. Current Psychiatric Medications: [] Nortriptyline 50 mg p.o. daily (x 3 months); Seroquel 100 mg p.o. nightly (increased 3 weeks ago); lorazepam 0.5 mg p.o. as needed for panic attack (patient taking it only once a week) Mental Status Examination: [] The patient is a 28-year-old female who has 1 nose piercing and is seen wearing glasses. She appears normal for stated age and has no psychomotor agitation or retardation. She is casually dressed and groomed with good hygiene. She is cooperative during the interview. Eye contact is good and speech is normal rate and rhythm and fluent with no pressure. Mood is depressed. Affect is mildly constricted. Thought process is goal-directed and organized. Thought content: There is evidence of chronic passive thoughts of and chronic, passive suicidal ideation. There is no evidence of active suicidal ideation, plan for suicide, homicidal ideation, hallucinations or delusions. Reality testing is intact. Judgment is intact. Insight: Fair. Impulsivity: High. Diagnoses: [] 1. Major depressive disorder, recurrent, severe without psychosis 2. OCD 3. Generalized anxiety disorder 4. Strong cluster B traits 5. Primary support, work and financial issues 6. Marijuana use disorder Plan: [] The patient will continue the IOP and behavioral health at [facility] as the structure, support, education and group therapy will hopefully prevent worsening of the patient's symptoms. She felt safe during the interview and if it anytime she does not feel safe she will let us know or go to the emergency room. The risk, options, possible complications and side effects of the medications were again discussed with the patient and she understands and accepts these. The patient does not wish to add Auvelity as an option to help treat her OCD and depression because she does not want another medication. The note she does agree to increase her nortriptyline to a total of 75 mg p.o. daily. She will take 50 mg p.o. at bedtime and 25 mg p.o. every morning. The patient will continue to follow-up with her outpatient providers and I will see the patient in follow-up while in the [facility].
--- NOTE | 2023-08-17 09:00 | BH.SGPN.GN ---
Behaviors/Verbalizations/Mental Status: []Eye contact fair. Motor activity appropriate. Speech within normal limits. Affect constricted. mood anxious. Thoughts linear, logical, no signs of hallucinations or delusions. Reviewed client?s symptom tracker, SI within baseline, denies plan, or intent. Client Response/Progress/Benefit: [] Client receptive of session, attentive and willing to process with group. Client stated mental health positive as continuing to work on her anxious exposure goals event though she finds them uncomfortable. Client reported additional win as doing better with consistently use her healthy coping skills. Client reported stressor is having negative internal dialogue that negatively impacts mood. Client seemed to benefit from support from peers. Recommended continued IOP tx to maintain mood stability, promote use of healthy coping skills, and prevent decompensation.
--- NOTE | 2023-08-17 10:10 | BH.SGPN.GN ---
Behaviors/Verbalizations/Mental Status: [] Eye contact is good. Motor activity is appropriate. Appearance is casual. Speech is Appropriate. Mood is anxious. Affect is congruent. Thoughts are linear and logical. No evidence of psychosis. Client Response/Progress/Benefit: [] Client was an active participant in group discussion and experiential activity. Attentive during psychoeducation on resilience. Participated during interactive discussion with peers on the definition of resilience. Group worked together to identify what can impact one's ability to be resilient which included; relationships. past experiences, trauma, support system, lack of resources,and current mental/physical health state. Group also worked together to identify the benefits of being resilient which included; increased self-worth, increased ability to cope, personal growth, can inspire others, and increased confidence. Able to relate experiential activity of group juggle to topics of resilience. Worked well with peers in small group in which they identified factors that contribute to resilience. Benefited from increased awareness of resilience and the factors that contribute to building resilience. Will continue in IOP to maintain safety, stabilize mood, and improve functioning. Narrative Note: []
--- NOTE | 2023-08-17 11:10 | BH.SGPN.GN ---
Behaviors/Verbalizations/Mental Status: []Pt alert and oriented, casually dressed and groomed. Eye contact good. Motor activity appropriate. Speech within normal limits. Affect congruent, mood anxious and dysthymic. Thoughts linear, logical, no signs of hallucinations or delusions. Client Response/Progress/Benefit: []Pt responded well to session AEB completing the resilience worksheet provided. Pt participated in the discussion and worked cooperatively with group to identify strategies to enhance each of the components discussed. Pt reports belief they already use resilience trait of??self-awareness? and ?make connections?. Pt stated they would like to continue to develop resilience trait of ?avoid seeing crises as insurmountable? as pt feels she would benefit from improving upon her ability to identify what is within her control what faced with a stressor. Pt seemed to benefit from discussing strategies for improving personal resilience and identifying resilience traits pt already possesses. Will continue IOP tx to prevent decompensation, improve daily functioning, and increase self-compassion skills.? Narrative Note: []
--- NOTE | 2023-08-17 11:28 | BH.MDN ---
Multi-Disciplinary Note Note 45-min Individual: Time Started:: 08:21 Date: 08/17/23 Purpose of session/treatment goals addressed:: To address tx plan goal #1 obj #1 and goal #2 obj #1 & #2. Eye Contact:: Good (tearful initially) Motor Activity:: Appropriate Appearance:: Casual Speech:: Appropriate Mood:: Anxious and Dysthymic Affect:: Congruent Thoughts:: Linear, Logical and No evidence of hallucinations/delusions noted Staff Interventions:: thought challenging, CBT techniques, strengths perspective, goal setting and other (discussed strategies for reducing sx of dissociation and improving connection to daily life ) Client Response:: Pt reports feeling anxious this morning and shared struggling with engaging in safety behaviors while getting ready this morning. Discussed feeling uncomfortable in the bathroom and felt it was dirty, so she had to wipe everything down with Clorox. Insight that although this temporarily made her feel relieved, it continues to contribute to maintaining her OCD and anxiety. Reports doing well not to shame herself through use of self-deprecation and was able to remind herself ?that was a bad moment, the day does not have to be bad?. Did well to highlight wins from the previous date, rather than fixate on what she feels went wrong this morning, which is significant progress. Reports following through with her exposure goal of only cleaning the cat litter box when returning home from [facility] group, rather than the entire house. Discussed initially feeling uncomfortable doing so and wanting to do more, but was able to utilize her mom for accountability and support. Proudly shared sitting in the living room with unfolded blankets and not acting on impulse to fold them. Pt discussed that although she can recognize progress in several areas, she still feels she is struggling significantly with internal dialogue. Able to recognize that many of her daily activities are though based and created barriers impeding her ability to be consistently present throughout the day. Receptive of discussion on beginning to implement more hands-on activities in her daily routine. Pt identified previously doing gardening and collages and found these to be enjoyable. Plans to spend time doing one of these activities over the weekend to improve engagement in daily life and reduce dissociation. Risks/Concerns:: Client denies any suicidal ideations, plan, or intent as of 08/17/23. Client is future oriented and able to identify protective factors. Progress Toward Goals/Plan:: Progress variable. Pt reports improved self-compassion and taking steps towards completing additional exposure goals; however, does self-report engaging in continued safety behaviors. Inconsistent application of grounding skills which continues to maintain difficulties with managing panic sx and preventing further escalation. Pt continues to report improved socialization and communication with her supports. More consistently advocating for her mental health needs. Reports no self-harming behaviors in 5 days as well. Recommended continued IOP tx to further improve consistency of grounding skill application, promote self-compassion, and prevent decompensation. Time Stopped:: 09:02
--- NOTE | 2023-08-20 09:05 | BH.SGPN.GN ---
Behaviors/Verbalizations/Mental Status: [] Eye contact is good. Motor activity is appropriate. Appearance is casual. Speech is Appropriate. Mood is anxious. Affect is congruent. Thoughts are linear and logical. No evidence of psychosis. Reviewed daily check in sheet and according to [facility] 10pt SI scale pt reports 3 (increased emotional intensity; lingering thoughts and capable of self-soothing. Denies risk of suicide. Client Response/Progress/Benefit: [] Pt was an active participant in group discussions. Attentive. Daily symptom tracker notes 4/5 for depression/anxiety and 3/5 for self-harm urges. Emotion for today is anxious. Reports slight decrease in panic attacks this past week from daily to every 2 days. My OCD and anxiety are pretty bad My depression has decreased and my anxiety has taken the wheel recently. Her anxiety, panic, and obsessive thoughts continue to impact her functioning, however reports decreased severity of impact. She has increased her healthy coping strategies and is actively working on exposure as well as a acceptance skills. Addressing and working through anxiety and obsessive thoughts rather than isolating and giving in. Progress noted per pt report. Benefited from group support, encouragement, and feedback. Will continue in IOP to maintain safety, stablize moood, and improve functioning. Narrative Note: []
--- NOTE | 2023-08-20 10:10 | BH.SGPN.GN ---
Behaviors/Verbalizations/Mental Status: []Patient was alert and oriented, casually dressed and groomed. Eye contact was good, motor activity normal, speech within normal limits. Affect congruent, mood content. Thoughts linear, logical, no signs of hallucinations or delusion Client Response/Progress/Benefit: []Pt participated in the group discussions AEB providing input and taking notes. Attentive during psychoeducation Goal Setting. Participated during the discussion on common barriers which the group identified as: lack of motivation, making excuses, not feeling good enough, and lack of support. Group also identified benefits sense of purpose, improved self-confidence, more motivation for other goals, and improved mental health. Benefited from increased awareness of mental health benefits of goals as well as psychoeducation on SMART goal criteria. Will continue in IOP to improve distress tolerance, increase healthy coping skills, and prevent decompensation.
--- NOTE | 2023-08-20 11:00 | BH.SGPN.GN ---
Behaviors/Verbalizations/Mental Status: []Pt alert and oriented, casually dressed and groomed. Eye contact good. Motor activity appropriate. Speech within normal limits. Affect congruent, mood anxious and dysthymic. Thoughts linear, logical, no signs of hallucinations or delusions. Client Response/Progress/Benefit: [] Pt was engaged during discussion and willing to complete the worksheet challenging them to develop a personal SMART goal. Pt chose the goal of applying positive self-talk statements paired with grounding exercises when experiencing panic by 5 minutes into panic within the next week. Pt stated this will improve self-compassion, confidence, and resilience. Pt identified negative self-talk, external stressors, and self-harm urges as potential barriers. Identified solutions such as speaking affirmation phrases out loud, perspective challenging, and progressive muscle relaxation. Pt receptive to identifying solutions for these barriers and willing to begin working on this goal. Benefited from this group by developing a short-term SMART goal related to mental health. Will continue IOP tx to increase healthy coping skills application consistency, stabilize mental health sx, and prevent decompensation. Narrative Note: []
--- NOTE | 2023-08-21 09:05 | BH.SGPN.GN ---
Behaviors/Verbalizations/Mental Status: [] Eye contact is good. Motor activity is appropriate. Appearance is casual. Speech is Appropriate. Mood is anxious. Affect is full. Thoughts are linear and logical. No evidence of psychosis. Reviewed daily check in sheet and pt reports 3/10 on the [facility] scale which notes lingering thoughts of with no overt suicidal risk. Client Response/Progress/Benefit: [] Pt was an active participant in group discussion. Attentive. Daily symptom tracker notes 4/5 for depression and 5/5 for anxiety. Emotion for today is cautiously hopeful. [facility] [facility] was setting up aftercare in the near future as she is moving closer to discharge from IOP level of care. Progress noted per pt report. I talked myself out of a lot panic yesterday. Reframing thoughts is becoming easier. She reports that the aspects of discharging from IOP is terrifying as she is concerned that the only reason for her improvement is b/c of structured treatment and routine of IOP. Anxiety and fear that she will not be able to maintain w/o IOP and will decompensate. Group reframed and challenged these thoughts and normalized anxiety which was beneficial. Will continue in IOP to maintain safety, stabilize mood, increase healthy coping, and improve functioning. Narrative Note: []
--- NOTE | 2023-08-21 10:55 | BH.MDN_ITS ---
Multi-Disciplinary Note Note 30-min Individual: Time Started:: 08:21 Date: 08/21/23 Purpose of session/treatment goals addressed:: To address tx plan goal #1 obj #2 and goal #2 obj #1 & #2. Eye Contact:: Good Motor Activity:: Appropriate Appearance:: Casual Speech:: Appropriate Mood:: Euthymic and Anxious Affect:: Congruent Thoughts:: Linear, Logical and No evidence of hallucinations/delusions noted Staff Interventions:: thought challenging, motivational interviewing, discharge planning, strengths perspective and goal setting Client Response:: Pt receptive of session, positive and actively engaged throughout. Pt brought phone into session as she had typed out several wins throughout the weekend on it and wanted to share in session. Described successfully going all Sunday and Sunday without experiencing a panic attack. Attributes this to reaching out to her friends about concerns related to being away from her cat due to his deteriorating health. Shared that she typed out the text and sent it without rereading it first which was a small exposure goal of hers. Pt reports her friends were supportive and this allowed pt to feel more comfortable leaving her cat for the weekend and she was able to have an enjoyable time. Explained that upon returning on Sunday, she challenged herself not to obsessively clean and instead only change the cat litter. Pt did well with completing this goal but did report experiencing panic afterward but was able to utilize grounding skills and affirmational statements to prevent the panic from persisting longer than 20 minutes which is progress. Did disclose engaging in self-harming via hitting herself in the head prior to bed. Believes ?intrusive dark thoughts? that were causing her anxiety to escalate was the trigger. Did well to prevent this from continuing and stopped herself before fu rther engaging in self-harming. Denies bruising herself and reports this is the first self-harming she has engaged in in a week, which is also progress. Pt discussed trying to challenge her previous expectations of what progress would look like and instead focus on giving herself credit for the progress she is continuing to make at present. Shared ongoing self-compassion and affirmations are suarez for continued maintenance. Identified a goal for the next week as identifying and contacting two places to volunteer following IOP d/c at the end of the month. Insight that this would connect with core values, provide purpose, and reduce isolation. Risks/Concerns:: Client denies any suicidal ideations, plan, or intent as of 08/21/23. Client is future oriented and able to identify protective factors. Progress Toward Goals/Plan:: Progress noted. Pt reports improved self-talk and improved self-compassion as a result. Identified a reduction in depressive sx and is continuing to make progress with small exposure goals. Reports going 2 days without a panic attack over the weekend and 7 days without self-harming wh ich is progress. Pt has contacted Myla Montaño with [facility] to begin individual outpatient counseling, intake scheduled for 09/11/23. Continues to report difficulties with self-deprecation, inconsistent skill application, and difficulties managing distress. Recommended continued IOP tx to further improve consistency of skill application, promote mood stability, and prevent decompensation. Time Stopped:: 09:55
--- NOTE | 2023-08-21 11:15 | BH.SGPN.GN ---
Behaviors/Verbalizations/Mental Status: []Pt alert and oriented, neatly dressed and groomed. Eye contact good. Motor activity appropriate. Speech within normal limits. Affect congruent, mood euthymic. Thoughts linear, logical, no signs of hallucinations or delusions. Client Response/Progress/Benefit: [] Pt was an active participant in group discussions and experiential activity. Attentive during psychoeducation on the 4 A's (Avoid, adapt, alter, accept) of coping with stress. Shared that they would benefit most from accepting and altering stressors in her jar. Many of pt?s stressors, like graduating from IOP, require a combination of both to help pt adjust and be more resilient. Was able to identify the connection between the experiential activity and utilization of stress management skills. Benefited from increased awareness of stress management strategies. Pt will continue IOP tx to promote mood stability, further improve daily functioning, and increase distress tolerance. Narrative Note: []
--- NOTE | 2023-08-22 10:10 | BH.SGPN.GN ---
Behaviors/Verbalizations/Mental Status: [] Eye contact is good. Motor activity is appropriate. Appearance is casual. Speech is Appropriate. Mood is euthymic. Affect is congruent. Thoughts are linear and logical. No evidence of psychosis. Client Response/Progress/Benefit: [] Pt receptive to session AEB contributing to small group discussion, as well as listening attentively to others, and taking notes. Worked with group to brainstorm the positive and negative aspects of stress on physical and mental health as well as the impact of distress on performance, relationships, and mental health. Pt shared her top stressors to be: Managing OCD and panic triggers, upcoming graduation from IOP, and taking care of Corey. Shared when feeling overwhelmed with stress she tends to shut down, self harm, and avoid. Benefited from increased awareness of positive and negative stress as well as how stress impact individuals. Will continue in IOP to promote utilization of distress tolerance skills, improve positive view of self, and prevent decompensation.
--- NOTE | 2023-08-23 09:00 | BH.SGPN.GN ---
Behaviors/Verbalizations/Mental Status: []pt eye contact good, casually dressed, motor activity appropriate, speech normal rate and tone, mood dysthymic and anxious, congruent affect, thoughts linear and intact, no evidence of delusions or hallucinations. Per daily symptom tracker pt denies active SI and intention. Client Response/Progress/Benefit: [] Client responded well to session AEB listening to others and sharing thoughts/feelings. On her symptom tracker pt reported a 5/5 for depression and a 5/5 for anxiety. Client stated mental health positive as being able to challenge negative thoughts she's been having that she can't make it to her best friend's graduation from law school. Client shared she knows her best friend reassured her it's more important to be in IOP then traveling out of state to a graduation. Client stated additional mental health win as coming to IOP today despite having a really hard time this morning due to body image issues. Client noted she used breathing, took a walk, and grounding tools to help her calm down. Shared her stressor is having two more weeks left of IOP. Appeared to benefit from support from peers. Will continue IOP tx to improve distress tolerance, increase healthy coping skills, and prevent decompensation.
--- NOTE | 2023-08-23 10:10 | BH.SGPN.GN ---
Behaviors/Verbalizations/Mental Status: [] Eye contact is good. Motor activity is appropriate. Appearance is casual. Speech is Appropriate. Mood is content and anxious. Affect is congruent. Thoughts are linear and logical. No evidence of psychosis. Client Response/Progress/Benefit: []Pt engaged participant AEB listening to others, engaging in activity, and providing feedback at times. Attentive during psychoeducation and provided insight into obstacles that impede mental wellness. Pt shared with group current mental health reality and desired mental health reality. Stated she is prud of the progress made in the last several weeks as her current reality is much more positive than it was several weeks ago. Stated would like to get to a place where she feels more present and able to navigate her thoughts and not let them feed the anxiety loop when hit with an unexpected stressor or setback. Identified barriers to desired reality include: fear, distorted thoughts, unrealistic expectations, and self-harm urges. Benefited from taking look at current mental health state and obstacles for progress. Pt to continue IOP tx to improve mood stability, reduce thought distortions, and prevent decompensation. Narrative Note: []
--- NOTE | 2023-08-23 11:05 | BH.SGPN.GN ---
Behaviors/Verbalizations/Mental Status: [] Eye contact is good. Motor activity is appropriate. Appearance is casual. Speech is Appropriate. Mood is anxious and content. Affect is congruent. Thoughts are linear and logical. No evidence of psychosis Client Response/Progress/Benefit: [] Pt was an active participant in group discussion and activity. Worked with group to identify strategies to help overcome barriers and obstacles to desired reality. Group developed strategies for the common barriers. Identified personal barriers to desired reality and choose one obstacle to work on. Pt stated she wants to work on barrier of holding self to unattainable expectations by practicing perspective challenging and reminding herself of what she has accomplished. Pt seemed to benefit from increased repertoire of healthy coping skills/strategies to overcome common barriers to moving forward. Pt is to continue IOP to improve confidence in ability to manage sx, increase healthy coping skill application and consistency, and prevent decompensation. Narrative Note: []
--- NOTE | 2023-08-24 09:00 | BH.SGPN.GN ---
Behaviors/Verbalizations/Mental Status: [] Pt alert and oriented, neatly dressed and groomed. Eye contact good. Motor activity restless. Speech within normal limits. Affect congruent, mood euthymic. Thoughts linear, logical, no signs of hallucinations or delusions. Reviewed pt?s symptom tracker, no risk for suicidal ideation, plan, or intent 08/24/23 Client Response/Progress/Benefit: []Pt responded well to session, attentive and engaged. Pt reports on the daily symptom tracker that her mood and functioning is better this week. 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 Pt stated she has been afraid that when she leaves IOP she will forget her coping skills, but yesterday was a good reminder that she has a lot of knowledge and tools to help her get through hard times. Pt also gave herself credit for setting herself up for success with aftercare following IOP. Pt appeared to benefit from reflecting on progress. Pt will continue IOP tx to promote mood stability, combat distortions, and improve distress tolerance. Narrative Note: []
--- NOTE | 2023-08-24 10:10 | BH.SGPN.GN ---
Behaviors/Verbalizations/Mental Status: [] Eye contact is good. Motor activity is appropriate. Appearance is casual. Speech is Appropriate. Mood is euthymic. Affect is full. Thoughts are linear and logical. No evidence of psychosis Client Response/Progress/Benefit: [] Client was an active participant during interactive group discussions. Attentive during psychoeducation on the six types of boundaries (physical, emotional, intellectual, sexual, time, and material) AEB note-taking and input in group discussions. Along with peers contributed to interactive discussion on defining what a boundary is in mental health. Client along with peers identified challenges to setting boundaries which included; fear of conflict, being uncomfortable, believing they are being rude or mean, etc. Client along with peers identified the benefits to setting boundaries such as healthier relationships, stronger sense of self, and improved confidence. Client benefited from increased awareness and insight on the importance/benefit to setting health boundaries. Will continue in IOP to maintain safety, prevent decompensation, and increase healthy coping. Narrative Note: []
--- NOTE | 2023-08-24 11:10 | BH.SGPN.GN ---
Behaviors/Verbalizations/Mental Status: [] Eye contact is good. Motor activity is appropriate. Appearance is casual. Speech is Appropriate. Mood is euthymic. Affect is congruent. Thoughts are linear and logical. No evidence of psychosis. Client Response/Progress/Benefit: [] Client responded well to session AEB listening attentively to peers, providing some input, as well as taking notes throughout. Client contributed throughout psychoeducation on different boundary setting styles. Connected with different styles and agreed with others she struggles with making decisions without reassurance from others. Participated in group discussion brainstorming various strategies for improving healthy boundary settings, as a group identified starting with easy/small boundaries, opening up to one trusted person and not overly apologizing as strategies to try. Seemed to benefit from increased awareness of how different boundary styles can impact mental health. Will continue IOP tx to increase healthy coping, improve view of self, and prevent decompensation.
--- NOTE | 2023-08-27 09:01 | BH.SGPN.GN ---
Behaviors/Verbalizations/Mental Status: [] Pt eye contact fair, casually dressed, motor activity appropriate, speech normal rate and tone, mood euthymic and anxious, congruent affect, thoughts linear and intact, no evidence of delusions or hallucinations. Per daily symptom tracker pt reports passive thoughts of , but reports ability to cope with thoughts. Denies intention or active SI. Client Response/Progress/Benefit: [] Client appeared to listen attentively to others and sharing openly with group. Per daily sympton tracker client reports 4/5 for anxiety and 5/5 for depression. Client stated mental health win as being able to show self-compassion after she used self-harm over the weekend as a coping skill. Client shared although it's not a coping skill she wants to use she approached herself different through a lens of compassion versus beating herself up. Client stated additional win as going [place] [employer] over the weekend despite having anxiety about being in large crowds. Stated she used skills that helped her stay present and she ended up having a good time. Stated her stressor is being done with IOP next week. Appeared to benefit from support from peers. Will continue IOP tx to promote healthy coping skills, continue working on distress tolerance, and prevent decompensation,.
--- NOTE | 2023-08-27 10:10 | BH.SGPN.GN ---
Behaviors/Verbalizations/Mental Status: [] Eye contact is good. Motor activity is appropriate. Appearance is casual. Speech is Appropriate. Mood is anxious. Affect is congruent. Thoughts are linear and logical. No evidence of psychosis. Client Response/Progress/Benefit: [] Pt participated at times. Attentive. Participated in and was engaged during experiential activity. Able to relate experiential activity to group topic of FOF. Engaged during interactive discussion on what failure means to the group in which peers identified and defined failure and Fear of Failure. Group was able to identify impact of fear of failure on mental health identifying that it can cause procrastination, avoidance, self-sabotage behaviors, etc. Attentive during interactive discussion on the impact that FOF can have on mental wellness, depression, anxiety, career, relationships, and growth. Benefited from increased awareness of how the role that FOF plays in mental health and decision-making. Will continue in IOP to maintain safety, stablize mood, and increase healthy coping. Narrative Note: []
--- NOTE | 2023-08-27 11:08 | BH.SGPN.GN ---
Behaviors/Verbalizations/Mental Status: []Pt alert and oriented, neatly dressed and groomed. Eye contact good. Motor activity appropriate. Speech within normal limits. Affect congruent, mood euthymic and anxious. Thoughts linear, logical, no signs of hallucinations or delusions. Client Response/Progress/Benefit: [] Pt responded well to session, engaged in the experiential activity and attentive throughout group processing. Pt reported fear of failure has kept pt from meeting new people, applying for jobs, and embracing herself. Pt completed fear of failure worksheet and was able to identify thoughts and behaviors that reinforce personal fear of failure including thinking everyone is ?watching or judging me,? avoiding new places, and being afraid to get better. Pt participated in group discussion regarding strategies to overcome fear of failure. Identified wanting to work on setting boundaries with herself. Appeared to benefit from increased knowledge of strategies to combat fear of failure and gaining self-awareness. Pt will continue IOP tx to promote mood stability, reduce use of unhealthy coping skills, and improve daily functioning. Narrative Note: []
--- NOTE | 2023-08-29 09:05 | BH.SGPN.GN ---
Behaviors/Verbalizations/Mental Status: [] Eye contact is good. Motor activity is appropriate. Appearance is casual. Speech is Appropriate. Mood is anxious. Affect is congruent. Thoughts are linear and logical. No evidence of psychosis. Reviewed daily check in sheet and [facility] scale shows 2/10 for suicidal thoughts which is the lowest it has been since admission. Client Response/Progress/Benefit: [] Pt was an active participant in group discussion. Attentive. Daily symptom tracker notes 4/5 for anxiety and 3/5 for depression. Emotion for today is disconnected and scattered. Able to identify mental health wins and healthy habits. According to pt she is beginning to notice that she is less anxious and more engaged. Met with outpatient psychiatrist yesterday who commented on her progress. I have to give myself credit for how far I've come. She has received praise on her progress by family as well however It's hard to believe them. Anxious about upcoming discharge from [facility]. She is also anxious about an upcoming family wedding and answering questions about herself. Fearful others will diamond expert her for not working in the past year. Progress noted per pt report. Benefited from group support, encouragement, and feedback. Will continue in [facility] to maintain safety, stabilize mood, and improve functioning. Narrative Note: []
--- NOTE | 2023-08-29 11:10 | BH.SGPN.GN ---
Behaviors/Verbalizations/Mental Status: [] Client alert and oriented, casually dressed and groomed. Eye contact good. Motor activity appropriate. Speech within normal limits. Affect congruent, mood anxious. Thoughts linear, logical, no signs of hallucinations or delusions. Client Response/Progress/Benefit: [] Client responded well to session, engaged and taking notes throughout. Worked with group to connect components of the experiential activity with characteristics of healthy and unhealthy relationships. Attentive during psychoeducation about characteristics of healthy, unhealthy, and abusive relationships. Client reported she would like to work on relationship with herself by talking kindly to self and being more respectful. Appeared to benefit from identifying current healthy relationship attributes and an area client wants to work on to build healthier relationships. Client to continue IOP to continue working on distress tolerance, increase consistent use of healthy coping skills, and challenge distorted/negative thoughts.
--- NOTE | 2023-08-30 10:10 | BH.SGPN.GN ---
Behaviors/Verbalizations/Mental Status: []Pt alert and oriented, casually dressed and groomed. Eye contact good. Motor activity appropriate. Speech within normal limits. Affect congruent, mood content and anxious. Thoughts linear, logical, no signs of hallucinations or delusions. Client Response/Progress/Benefit: [] Pt was an active?participant in group discussion identifying benefits of healthy relationships which included improved connections, accountability, and personal growth. Group identified factors that lead to unhealthy relationships. Pt?s personal factors included poor communication, poor boundaries, and low self-worth. Actively participated in group experiential activity and expressed ideas to group. Benefited from increased insight and awareness of benefits of healthy relationships and factors that contribute to unhealthy relationships. Will continue IOP tx to promote mood stability, increase self-compassion, and improve daily functioning. Narrative Note: []
--- NOTE | 2023-08-31 09:05 | BH.SGPN.GN ---
Behaviors/Verbalizations/Mental Status: []Pt alert and oriented, neatly dressed and groomed. Eye contact good. Motor activity appropriate. Speech within normal limits. Affect congruent, mood euthymic and anxious. Thoughts linear, logical, no signs of hallucinations or delusions. Reviewed pt?s symptom tracker, no risk for suicidal ideation, plan, or intent 08/31/23 Client Response/Progress/Benefit: []Pt responded well to session, attentive and engaged. Pt reports feeling scattered this morning. Pt stated she is having a hard time reminding herself of her strengths and skills knowing that her time in IOP is ending. 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 Pt was offered supportive statements, ideas to cope, and thought challenging from peers. Pt shared she does see progress because yesterday my brain was threatening to ruin my hike but I didn't let it. Pt also has been using opposite action and getting outside more which has been helpful. Pt appeared to benefit from recognizing personal progress and connecting with peers. Pt will continue IOP tx to promote mood stability, increase distress tolerance skills, and reinforce the use of healthy coping skills. Narrative Note: []
--- NOTE | 2023-08-31 10:15 | BH.SGPN.GN ---
Behaviors/Verbalizations/Mental Status: []Eye contact is good. Motor activity is appropriate. Appearance is casual. Speech is Appropriate. Mood is anxious and content. Affect is congruent. Thoughts are linear and logical. No evidence of psychosis. Client Response/Progress/Benefit: [] Pt was an active participant in activity and taking notes during group discussion. Attentive during psychoeducation and interactive discussion on coping skills included why people use unhealthy skills. Group came up with list of unhealthy coping skills and pt identified personal ones as avoidance, overthinking, rumination, and isolating. Group discussed the effects of how unhealthy coping skills can impact mental health in a negative way. Participated during experiential activity and was able to relate the activity to group topic regarding the benefits of developing strong internal and external support system. Benefited from increased understanding of unhealthy coping skills and the need for developing healthy internal and external coping skills. Pt will continue IOP tx to prevent decompensation, promote mood stability, and improve daily functioning. ? Narrative Note: []
--- NOTE | 2023-08-31 11:15 | BH.SGPN.GN ---
Behaviors/Verbalizations/Mental Status: []Pt alert and oriented, casually dressed and groomed. Eye contact good. Motor activity appropriate. Speech within normal limits. Affect congruent, mood euthymic. Thoughts linear, logical, no signs of hallucinations or delusions. Client Response/Progress/Benefit: [] Pt responded well to session, taking notes and contributing when prompted. Group discussed the different categories of coping skills which included distraction, emotional release, grounding, self-love, and thought challenging. Pt participated in creating a coping skills ?menu? from the five categories of coping skills. Pt's coping skill menu included: coloring/art, dancing, yoga, meeting basic needs, and thought stopping. Appeared to benefit from increasing repertoire of healthy coping skills. Will continue IOP to promote use of healthy coping skills, challenge distortions, and prevent decompensation.
--- NOTE | 2023-08-31 11:24 | BH.MDN ---
Multi-Disciplinary Note Note 45-min Individual: Time Started:: 08:25 Date: 08/31/23 Purpose of session/treatment goals addressed:: To address tx plan goal #1 obj #1 and goal #2 obj #2. Eye Contact:: Good (tearful at times throughout) Motor Activity:: Appropriate Appearance:: Casual Speech:: Appropriate Mood:: Anxious and Dysthymic Affect:: Congruent Thoughts:: Linear, Logical and No evidence of hallucinations/delusions noted Staff Interventions:: thought challenging, CBT techniques, strengths perspective, completed risk assessment / safety planning, goal setting and taught coping skills (reviewed emotion regulation and distress tolerance skills) Client Response:: Pt receptive of session, openly discussed current areas of progress as well as ongoing struggles. Reports feeling things are ?going okay?. Identified that she has been growing more confident and comfortable in completing her daily exposure goals, describing successfully reducing cleaning safety behaviors as a result. Additionally, pt described following through with her goal from last session to contact two local agencies she can volunteer. Pt shared reaching out to the [facility] and ?[facility]? 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 Expressed increased difficulties with feeling distant and distracted by her own thoughts. Discussed a constant need to rehearse her day and overprepare for conversations or appointments so she doesn?t forget something or say something she believes is embarrassing. Described planning what she will say during process group the night before, reading and rereading messages before sending them, as well as obsessing about what she will share in her upcoming initial appointment with her new outpatient therapist, Myla Montaño. Disclosed increased self-harming via hitting herself as a result of feeling overwhelmed by her own racing thoughts. Receptive of discussion reviewing emotional release skills as alternatives to self-harming. Receptive of going into a room with other people when noticing increased warning signs for self-harm as pt is unlikely to engage in the behavior around others. Pt additionally able recognize the importance of setting goals to reduce safety behavior of over preparing. Plans to challenge herself to type out messages to her friends and send them without giving herself time to reread, as well as create a bullet point list of what she wants to discuss in her upcoming appointments without allowing herself to type out full paragraphs or go back to the list multiple times and reread it. Risks/Concerns:: Client denies any suicidal ideations, plan, or intent as of 08/31/23. Client is future oriented and able to identify protective factors. Does report increased self-harming via hitting herself but was willing to safety plan. Progress Toward Goals/Plan:: Progress remains variable. Pt reports continued improved self-talk and ability to complete exposure goals surrounding her cleaning safety behaviors. Pt does however report an influx in racing thoughts resulting in increased self-harming due to pt struggling with effectively managing feelings of being overwhelmed. Able to identify several alternative skills to manage her emotions when experiencing overwhelming thoughts; however, struggles with consistent skill application. Receptive of setting goals to increase consistency, as well as reach out to supports. Recommended continued IOP tx to further improve consistency of skill application, promote mood stability, and prevent decompensation. Time Stopped:: 09:05
--- NOTE | 2023-09-04 09:05 | BH.SGPN.GN ---
Behaviors/Verbalizations/Mental Status: [] Eye contact is poor. Motor activity is appropriate. Appearance is casual. Speech is Appropriate. Mood depressed. Affect is flat. Thoughts are linear and logical. No evidence of psychosis. Reviewed daily check in sheet and pt reports 2/10 on the [facility] ideation scale and denies overt risk of suicide. Client Response/Progress/Benefit: [] Pt participated at times during the group discussion. Attentive. Daily symptom tracker notes 4/5 for anxiety and depression. States that she feels dissociated today. I don't feel like myself. Anxiety and fear about this being her last week in IOP. Reports being sad and scared. Able to identify mental health wins over the weekend and today I'm here. Fearful that she will regress w/o IOP level of care. She is set to follow up with aftercare group here at [facility] and is linked with therapist as well as psychiatrist. Benefited from group support, encouragement, and feedback. Will continue in IOP to maintain safety, stabilize mood, and improve functioing. Narrative Note: []
--- NOTE | 2023-09-04 10:15 | BH.SGPN.GN ---
Behaviors/Verbalizations/Mental Status: []Eye contact is good. Motor activity is appropriate. Appearance is casual. Speech is Appropriate. Mood is anxious. Affect is flat. Thoughts are linear and logical. No evidence of psychosis. Client Response/Progress/Benefit: [] Pt was actively engaged, providing input at times, and taking notes throughout session. Connected with the topic of pitfalls and listened to group discussion on internal and external barriers that prevent from choosing a healthier path to mental wellness. Group worked together to identify examples of personal internal pitfalls and pt identified theirs as shutting down, not getting outside, and letting her thoughts control her. Pt benefited from group as pt learned to better identify and normalize potential barriers to improving mental health symptoms. Pt also gained awareness of the difference between external triggers and self-sabotaging behaviors. Will continue in IOP to promote gains, improve daily functioning, and further increase distress tolerance skills. Narrative Note: []
--- NOTE | 2023-09-04 11:15 | BH.SGPN.GN ---
Behaviors/Verbalizations/Mental Status: []Pt alert and oriented, casually dressed and groomed. Eye contact good, tearful at times. Motor activity appropriate. Speech within normal limits. Affect congruent, mood anxious. Thoughts linear, logical, no signs of hallucinations or delusions. Client Response/Progress/Benefit: [] Pt receptive of session, engaged throughout AEB actively contributing and listening to discussion, as well as taking notes. Pt participated in the experiential activity and processed with group how their emotions, perspective, and reactions positively and negatively impacted the outcome. Pt identified pitfalls they struggle with and shared wanting to work on pitfall of self-harming urges by practicing mindfulness, self-compassion, and reaching out to supports daily. Benefited from identifying personal pitfalls and strategies to overcome these pitfalls. Will continue IOP tx to prevent decompensation, further improve mood stability, and promote ongoing application of healthy coping skills. Narrative Note: []
--- NOTE | 2023-09-07 09:05 | BH.SGPN.GN ---
Behaviors/Verbalizations/Mental Status: [] Eye contact good. Motor activity appropriate. Speech within normal limits. Affect congruent, mood anxious and dysthymic. Thoughts linear, logical, no signs of hallucinations or delusions. Reviewed client?s symptom tracker, denies SI, plan, or intent as of 09/07/2023. Client Response/Progress/Benefit: [] Client receptive of session, attentive and willing to process with group. Identified mental health ?wins? today as making it through several stressors and difficult moments this week and not allowing them to define her week or her progress. Shared using positive self-talk and self-compassion to help support herself in doing so. Additional win noted as using opposite action to continue to engage in activities she enjoys despite wanting to isolate at various points throughout the week. Pt shared it is her last day today and this is somewhat of a stressor as she worries about her ability to maintain gains. Did well to identify several skills and is connected with outpatient counseling and psychiatry. Pt reports plans to go to [place] to celebrate with her parents swapnil. Recommended continued outpatient tx following IOP d/c today to continue to improve mood stability, promote consistency of skill application, and prevent decompensation. Narrative Note: []
--- NOTE | 2023-09-07 10:10 | BH.SGPN.GN ---
Behaviors/Verbalizations/Mental Status: [] Eye contact is good. Motor activity is appropriate. Appearance is casual. Speech is Appropriate. Mood is anxious. Affect is full. Thoughts are linear and logical. No evidence of psychosis Client Response/Progress/Benefit: [] Pt responded well to session AEB contributing to small group discussion, taking notes, and listening attentively to others. Participated during interactive discussion in which pt and peers defined anger and discussed the benefits of managed anger and anger as a secondary emotion. Group identified several emotions which can drive anger which included; pain, confusion, jealously, regret, loss, embarrassment, and exhaustion. Appeared to benefit from increased knowledge of the anger cycle as well as personal triggers. Pt is scheduled to discharge successfully from [facility] level of care this afternoon. Narrative Note: []
--- NOTE | 2023-09-07 10:56 | BH.MDN ---
Multi-Disciplinary Note Note 30-min Individual: Time Started:: 08:29 Date: 09/07/23 Purpose of session/treatment goals addressed:: To address tx plan goal #1 obj #2 and goal #2 obj #1. Eye Contact:: Good (tearful) Motor Activity:: Appropriate Appearance:: Casual Speech:: Appropriate Mood:: Anxious and Dysthymic Affect:: Congruent Thoughts:: Linear, Logical and No evidence of hallucinations/delusions noted Staff Interventions:: thought challenging, CBT techniques, discharge planning, strengths perspective and taught coping skills (reviewed distress tolerance skills) Client Response:: Pt entered session tearful and expressed having a difficult morning. Shared that her cat, who is terminally ill, has started having accidents outside of the litter box. Noted trying to challenge herself to remember that he is ill and unable to control it, but reports difficulties managing the intrusive thoughts surrounding cleanliness. Shared ?spiraling? this morning when discovering he had another accident, resulting in pt yelling and ?obsessively cleaning?. Did well to identify her warning signs that she was escalating; however, self-reports putting minimal effort into applying distress tolerance skills in the moment or asking for help. Reflected that these moments feel validating, as she reports she does not often lash out in frustration, and reports they also serve as an emotional release. Receptive of discussion reviewing the potential benefits and costs of this form of an emotional release. Insight that her current behaviors result in increased embarrassment and anxiety afterward. Did well to identify a plan of having her mother clean the accident mess to prevent unnecessary additional triggers for pt in the future and allow her to utilize her skills to prevent further escalation. Went on to discuss feeling nervous about discharge from IOP because she feels she still has much work to do, stating ?I?m a mess and we haven?t even gotten past the tip of the iceberg?. Did well to challenge and identify that one setback does not negate her progress. Receptive of discussion challenging distortions and reviewing areas she has made progress in IOP treatment including: increased self-compassion, better management of anxiety, increased ability to complete small exposure goals, and improved confidence in her relationship with herself. Reflected that she is more stable now and capable of addressing her ongoing mental health sx on an outpatient level. Pt will meet with her outpatient counselor, Myla Montaño, Sunday for her initial intake assessment and plans to begin the aftercare program on , 09/13/23, as well. Risks/Concerns:: Client denies any suicidal ideations, plan, or intent as of 09/07/23. Progress Toward Goals/Plan:: Progress noted as evidenced by pt self-report and reduction in DSM-5 scores. Pt has seen an overall 19% reduction in sx. Anxiety has reduced by 37.5%. She reports increased insight into her mental health warning signs and sx and improved ability to apply behavior activation and grounding skills to manage anxiety and depressive sx. Continues to work on improving her ability to utilize supports and spend time socializing as well. Pt does continue to struggle with consistent emotion regulation and would benefit from ongoing work in this area. Pt self-reports feeding into my emotions at times which may have limited further progress. She does start with Myla Montaño of [facility] on 09/11/23 to begin more consistent and ongoing ERP tx to address OCD related sx. Pt will additionally begin the [facility] aftercare program on 09/13/23 for ongoing support and maintenance of mental health sx. Time Stopped:: 09:00
--- NOTE | 2023-09-07 11:15 | BH.SGPN.GN ---
Behaviors/Verbalizations/Mental Status: []Client alert and oriented, casually dressed and groomed. Eye contact good. Motor activity appropriate. Speech within normal limits. Affect congruent, mood euthymic and anxious. Thoughts linear, logical, no signs of hallucinations or delusions. Client Response/Progress/Benefit: []Pt was engaged throughout AEB contributing to group discussion and self-reflection. Group finished processing cues to anger worksheet. Pt contributed as group brainstormed healthy coping skills for better managing anger which included: music, walking/exercise, taking a break, reflection, and journaling. Attentive in discussion about identifying personal anger cycle. Stated will work on taking a step away and using progressive muscle relaxation as skills/strategies to prevent unhealthy anger response. Pt appeared to benefit from identifying different techniques to manage anger as well as gaining awareness of potential consequences of unmanaged anger. Pt has made treatment progress since starting IOP and will discharge from program today.
--- NOTE | 2023-09-07 15:41 | BH.DS ---
Discharge Summary Demographics Date of Admission:: 07/09/23 Discharge Date: 09/07/23 Presenting Problems at Admission:: The patient is a 28-year-old female with a history of depression and anxiety my whole life who was referred by a friend to the [facility] behavioral health IOP for worsening symptoms of depression, anxiety and OCD. The patient last worked in [place] at [employer] for 2 years and this was a very stressful job, resulting in the decline of her mental health and pt moving back to [place] to live with her parents. The patient's mental health has been worsening for the past year and she moved back to this area in August. Pt reports struggling with purposelessness, feeling she is ?in the way? and feeling like a burden to her parents, as well as not knowing who she is. She endorses OCD revolving around spending hours cleaning and organizing and redoing chores and checking them over a lot which can take hours. She also has intrusive thoughts that she has done something wrong and often feels bad about herself as a result. She is a worrier by nature, ruminates negatively, and reports having 3-4 panic attacks per week. Pt reports a hx of self-harming since middle school and currently engages in self-harm by hitting or cutting herself. Shared she often leaves bruises when hitting herself and she most recently did this yesterday, last cut herself 1 month ago. She has never required stitches. She smokes marijuana 3-4 times a week in the form of a joint. She endorses sadness, uncomfortable anxious restlessness at times, hopelessness, worthlessness, anhedonia, decreased appetite, difficulties getting out of bed, low motivation, poor energy, guilt, passive thoughts of , and passive suicidal ideation all of the time. The patient states she always has passive suicidal ideation in the back of my mind and always has had this. She denies plan for suicide, active suicidal ideation, homicidal ideation, hallucinations, delusions or symptoms of franky ever. The patient had bulimia with purging by emesis in high school only and not since. Discharge Diagnoses:: 1. Major depressive disorder, recurrent, severe without psychosis 2. OCD 3. Generalized anxiety disorder 4. Cluster B traits 5. Primary support, work and financial issues 6. Marijuana use disorder Reason for Discharge:: Pt has accomplished her tx goals AEB pt's reduction in overall symptoms, self-report of improved functioning, and self-report of improved mood. Pt not longer meets criteria for IOP level of care and will follow up with individual therapy, psychiatry, and IOP aftercare group. Treatment Progress During Treatment & Response: Pt has responded well to treatment as evidenced by Pt consistently attending IOP sessions and her reduction of DSM-5 scores since admission. Pt was always attentive and receptive to learning during group and individual sessions. Pt improved upon her consistency in application of coping skills outside of IOP and reports overall her mood is improved and she is functioning better than she was several months ago. Pt?s overall symptom reduction is 19% since admission with anxiety decreasing by 17% and depression symptoms decreasing by 37.5%. Pt has increased self-confidence in her ability to manage stressors, emotions, and her distorted thinking patterns. Most importantly, Pt has been working very hard on reducing her avoidance, safety behaviors, and engagement in compulsions. This is something DSM-5 scores cannot effectively measure and Pt deserves a lot of credit for. Issues Still to be Addressed:: Pt is still struggling with her OCD and can benefit significantly from ongoing therapy addressing this. Pt can benefit from working on ERP therapy and increasing distress tolerance skills through exposure. Pt can also benefit from building more balanced core beliefs, practicing self-compassion, boundary setting, and identifying what she wants to do for work. Lastly, pt is working on increasing genuine social connections and building relationships. Discharge Recommendations/Instructions:: Pt will follow up with Dr. Jacob for medication management. Pt sees Myla Montaño for individual therapy and her next session is 09/11/23. Pt will begin IOP aftercare on 09/13/23. Discharge Handout
== END 2023-09-07 12:19 | disposition home or self-care (01) ==
LOC: BHIOP 06:32
PROVIDERS: PCP Internal Medicine; Referring Provider Psychiatry & Neurology Psychiatry; Visit Provider Psychiatry & Neurology Psychiatry
DX: F33.2 Major depressive disorder, recurrent severe without psychotic features (principal); F42.9 Obsessive-compulsive disorder, unspecified; F41.1 Generalized anxiety disorder; F12.90 Cannabis use, unspecified, uncomplicated; Z79.899 Other long term (current) drug therapy
CPT/HCPCS: 99214; H2012; H2020; S9480; 90832; 90834

== ENCOUNTER 2023-09-13 08:00 | Outpatient (RCR) | payer MEDICAID, SELFPAY ==
--- NOTE | 2023-09-13 09:16 | BH.MTP ---
Master Treatment Plan Patient Information Program Physician:: Dr. Krys Sarabia Primary Therapist:: HARRY Hidalgo Psychiatric Diagnoses Psychiatric Diagnoses:: 1. Major depressive disorder, recurrent, severe without psychosis 2. OCD 3. Generalized anxiety disorder 4. Cluster B traits 5. Primary support, work and financial issues 6. Marijuana use disorder Diagnosis Code(s):: F33.2 Estimated LOS Estimated LOS (in weeks):: 8 Problem/Goal #1 Problem/Goal #1 Stated Goal:: Client will maintain or see a reduction in symptoms AEB client score on the DSM 5 cross-cutting measure and improve client's daily functioning. Objectives Objective #1: Stated Objective: Client will continue to consistently apply healthy coping skills to maintain progress made in IOP tx. Interventions: Through group therapy, client will review warning signs and triggers as well as healthy coping skills learned in IOP tx to successfully maintain gains while transitioning into outpatient therapy. Discharge Criteria: Client will have accomplished this goal when client's score on the DSM-5 cross-cutting measure has maintained or reduced over a 8 week period. Target Date: 11/08/23 Review Date: 10/11/23 Objective #2: Stated Objective: Client will learn and utilize 2-3 maintenance strategies to prevent decompensation from original IOP DSM-5 scores. Interventions: Through group therapy, client will be provided with education on healthy maintenance behaviors, relapse prevention techniques, and healthy coping strategies. Discharge Criteria: Client will have accomplished this goal when can report using at least 2 maintenance skills to prevent decompensation compared to original IOP DSM-5 scores. Target Date: 11/08/23 Review Date: 10/11/23
--- NOTE | 2023-09-13 14:00 | BH.COMM ---
Communication Note Communication with Client Communication Note: Patient completed IOP and presents today to start relapse prevention group which meets once weekly (1.5 hours) for 8 weeks. Case discussed with Dr. Sarabia with plan to admit with dx of F33.2
--- NOTE | 2023-09-13 14:00 | BH.SGPN.GN ---
Behaviors/Verbalizations/Mental Status: []Pt alert and oriented, casually dressed and groomed. Eye contact good. Motor activity appropriate. Speech within normal limits. Affect congruent, mood content, positive. Thoughts linear, logical, no signs of hallucinations or delusions. Client Response/Progress/Benefit: []Pt responded well to session AEB sharing and listening attentively to others. Pt has been consistent with outpatient mental health appointments and medication compliance. Pt reports using positive self-talk, opposite action, gratitude, and journaling to help with managing mental health symptoms. Pt participated in group discussion defining affirmations and why they are important. Pt provided insight throughout clinician?s presentation of tips for writing personal affirmations and wrote their own affirmations, including ?I do not have to prove anything. I am enough as I am?, ?I don't have to focus on what is next, I only need to focus on what is right now?, and ?I protect myself better than my anxiety or panic can?. Pt appeared to benefit from increased knowledge of affirmation writing skills and creating their own affirmation statements to remind themselves of outside tx environment. Will continue aftercare tx to promote consistent mental health maintenance and prevent decompensation. Narrative Note: []
--- NOTE | 2023-09-20 14:00 | BH.SGPN.GN ---
Behaviors/Verbalizations/Mental Status: []Pt alert and oriented, casually dressed and groomed. Eye contact good, tearful. Motor activity appropriate. Speech within normal limits. Affect congruent, mood dysthymic, grieving. Thoughts linear, logical, no signs of hallucinations or delusions. Client Response/Progress/Benefit: [] Pt receptive of session, engaged throughout. Pt shared she did attend an outpatient therapy session this week, has been consistent with meds, and is using coping skills. These skills included: journaling, gratitude, deep breathing, and positive self-talk. Receptive of discussion on ?Chapters of my life? poem. Pt contributed to the discussion of the different chapters one may go through and how they connect with current mental health progress. Pt reflected and identified their current chapter as ?3 - sometimes 4? and noted ?There are still a lot of patters and loops I am stuck in because I have been stuck so long; but, I am gaining awareness and using what works/helps?. Identified that practicing her skills regularly to create healthier habits would help with getting to the next chapter. Pt seemed to benefit from support from peers and increasing understanding of ?Chapters of my life?. Will continue IOP aftercare to maintain gains and prevent decompensation. Narrative Note: []
--- NOTE | 2023-10-18 09:22 | BH.MTP_ITS ---
Treatment Plan Review Demographics Date of Admission:: 09/13/23 Date of Treatment Plan Review:: 10/18/23 Admitting Diagnoses:: 1. Major depressive disorder, recurrent, severe without psychosis 2. OCD 3. Generalized anxiety disorder 4. Cluster B traits 5. Primary support, work and financial issues 6. Marijuana use disorder Current Diagnoses:: 1. Major depressive disorder, recurrent, severe without psychosis 2. OCD 3. Generalized anxiety disorder 4. Cluster B traits 5. Primary support, work and financial issues 6. Marijuana use disorder Patient Status Patient's Response to Treatment:: Pt continues to respond well to treatment AEB pt's consistent attendance, ongoing attentiveness and engagement in group discussions, and continued reporting use of skills outside treatment environment. Pt's symptoms are still 12% lower than they were at IOP admission. Status of Current Problems and Symptoms: Pt is reporting continued improvement with her mental health via ability to manage emotions, challenging negative thoughts, and improved communication and boundaries. Pt continues to work on her exposure goals, She has been able to better cope with her grief surrounding the loss of her cat as well. Pt reports moderate anxious and depressive symptoms currently. Pt's biggest stressors are connected to self-esteem and managing her OCD. Progress Problem #1: Problem Name:: Pt will maintain or see a reduction in sx Status of Goals:: Obj 1 - complete with ongoing work encouraged. Pt's DSM 5 scores for anger are 75% lower than they were at IOP admission and anxiety is 25% lower compared to IOP admission. Pt's depression scores have not decreased but maintained stable. Obj 2 - complete with ongoing work encouraged. Pt had been reporting using opposite action, focusing on self-compassion even on rough days, acceptance, and communicating with supports. Team Recommendations:: Recommended pt continue IOP aftercare group in addition to attending regular outpatient counseling with Myla Montaño and jesus dingication management with Dr. Jacob in order to maintain gains.
== END 2023-10-07 23:59 ==
LOC: BHOG 08:00
PROVIDERS: PCP Internal Medicine; Referring Provider Psychiatry & Neurology Psychiatry; Visit Provider Psychiatry & Neurology Psychiatry
DX: F33.2 Major depressive disorder, recurrent severe without psychotic features (principal); F42.9 Obsessive-compulsive disorder, unspecified; F41.1 Generalized anxiety disorder; F12.90 Cannabis use, unspecified, uncomplicated; Z79.899 Other long term (current) drug therapy
CPT/HCPCS: 90853

== ENCOUNTER 2023-10-08 07:17 | Outpatient (RCR) | payer MEDICAID, SELFPAY ==
--- NOTE | 2023-10-18 14:00 | BH.SGPN.GN ---
Behaviors/Verbalizations/Mental Status: []Pt alert and oriented, neatly dressed and groomed. Eye contact good. Motor activity appropriate. Speech within normal limits. Affect congruent, mood depressed. Thoughts linear, logical, no signs of hallucinations or delusions. Client Response/Progress/Benefit: []Pt responded well to session, attentive and engaged. Receptive to feedback. Pt reports they have been following up with her outpatient appointments with her therapist and medications to maintain her mental wellness. Pt reports she has been struggling with a recent setback and the grief from her cat passing away last month. System Support Technician and group offered support and feedback on coping with grief and depression which pt appeared to benefit from. Pt shared using skills like self-talk, reaching out to friends, challenging distortions, and giving herself credit. Pt responded well to discussion of problem-solving including the strategies for problem-solving. Pt participated in the group activity and helped peers find a way to overcome the challenge obstacles. Pt was encouraged to take the problem-solving strategies and apply them outside of IOP aftercare. Pt will continue IOP aftercare to promote mood stability, reinforce healthy coping skills, and promote gains. Narrative Note: []
--- NOTE | 2023-10-25 14:00 | BH.SGPN.GN ---
Behaviors/Verbalizations/Mental Status: []Pt alert and oriented, neatly dressed and groomed. Eye contact good. Motor activity appropriate. Speech within normal limits. Affect congruent, mood dysthymic. Thoughts linear, logical, no signs of hallucinations or delusions. Client Response/Progress/Benefit: []Pt responded well to session, Pt reports they see their therapist weekly and she is consistent with medications. Pt shared a recent stressor with the group and received support from peers and epic trainer which helped pt practice self-compassion. Pt also reflected on the coping skills pt has been using such as positive self-talk, healthy distraction, and self-compassion. Pt engaged well during the discussion on intrinsic and extrinsic motivation. Pt connected with the benefits of developing strong sources of intrinsic motivation and participated in brainstorming strategies to do so. Pt identified plans to begin daily gratitude exercises to improve own intrinsic motivation. Pt appeared to benefit from psychoeducation on different sources of motivation and ways to improve motivation. Will continue aftercare tx to maintain gains and prevent decompensation. Narrative Note: []
--- NOTE | 2023-10-25 14:00 | BH.SGPN.GN ---
Behaviors/Verbalizations/Mental Status: []Pt alert and oriented, neatly dressed and groomed. Eye contact good. Motor activity appropriate. Speech within normal limits. Affect congruent, mood dysthymic. Thoughts linear, logical, no signs of hallucinations or delusions. Client Response/Progress/Benefit: []Pt responded well to session, Pt reports they see their therapist weekly and she is consistent with medications. Pt shared a recent stressor with the group and received support from peers and asbestos siding installer which helped pt practice self-compassion. Pt also reflected on the coping skills pt has been using such as positive self-talk, healthy distraction, and self-compassion. Pt engaged well during the discussion on intrinsic and extrinsic motivation. Pt connected with the benefits of developing strong sources of intrinsic motivation and participated in brainstorming strategies to do so. Pt identified plans to begin daily gratitude exercises to improve own intrinsic motivation. Pt appeared to benefit from psychoeducation on different sources of motivation and ways to improve motivation. Will continue aftercare tx to maintain gains and prevent decompensation. Narrative Note: []
--- NOTE | 2023-10-25 14:00 | BH.SGPN.GN ---
Behaviors/Verbalizations/Mental Status: []Pt alert and oriented, neatly dressed and groomed. Eye contact good. Motor activity appropriate. Speech within normal limits. Affect congruent, mood dysthymic. Thoughts linear, logical, no signs of hallucinations or delusions. Client Response/Progress/Benefit: []Pt responded well to session, Pt reports they see their therapist weekly and she is consistent with medications. Pt shared a recent stressor with the group and received support from peers and qa reviewer which helped pt practice self-compassion. Pt also reflected on the coping skills pt has been using such as positive self-talk, healthy distraction, and self-compassion. Pt engaged well during the discussion on intrinsic and extrinsic motivation. Pt connected with the benefits of developing strong sources of intrinsic motivation and participated in brainstorming strategies to do so. Pt identified plans to begin daily gratitude exercises to improve own intrinsic motivation. Pt appeared to benefit from psychoeducation on different sources of motivation and ways to improve motivation. Will continue aftercare tx to maintain gains and prevent decompensation. Narrative Note: []
== END 2023-11-07 23:59 ==
LOC: BHOG 07:17
PROVIDERS: PCP Internal Medicine; Referring Provider Psychiatry & Neurology Psychiatry; Visit Provider Psychiatry & Neurology Psychiatry
DX: F33.2 Major depressive disorder, recurrent severe without psychotic features (principal); F42.9 Obsessive-compulsive disorder, unspecified; F41.1 Generalized anxiety disorder; F12.90 Cannabis use, unspecified, uncomplicated
CPT/HCPCS: 90853

== ENCOUNTER 2023-11-08 07:17 | Outpatient (RCR) | payer MEDICAID, SELFPAY ==
--- NOTE | 2023-11-08 14:00 | BH.SGPN.GN ---
Behaviors/Verbalizations/Mental Status: []Pt alert and oriented, neatly dressed and groomed. Eye contact good. Motor activity appropriate. Speech within normal limits. Affect congruent, mood euthymic and sad. Thoughts linear, logical, no signs of hallucinations or delusions. Client Response/Progress/Benefit: []Pt receptive of session, engaged throughout. Pt shard they did not meet with their outpatient provider since last session and pt shared this has been difficult. Pt has been taking medications consistently and reports utilizing healthy coping skills outside of aftercare. These skills included: gratitude reflection, thought stopping, and journaling. ?Receptive of discussion on sitting with the uncomfortable and emotional urges. Pt contributed to the discussion of distress tolerance and how building distress tolerance can help improve mood stability and resilience. Pt wants to keep building distress tolerance by reducing her use of safety behaviors. Pt seemed to benefit from support from peers and increasing understanding of distress tolerance. Will continue aftercare to reinforce healthy coping skills and improve daily functioning. Narrative Note: []
--- NOTE | 2023-11-15 14:05 | BH.DS_ITS ---
Discharge Summary Demographics Date of Admission:: 09/13/23 Discharge Date: 11/15/23 Presenting Problems at Admission:: Pt discharged from IOP tx and transitioned to IOP aftercare to maintain gains pt made in IOP and to reinforce healthy coping skills. At admission to IOP aftercare, pt continued to report symptoms of depression, anxiety, and stress within her ability to manage OCD sx, her cat?s health, and maintaining social relationships. Pt also was experiencing stressors with challenging negative core beliefs, exposure goals, and maintaining self- care. Discharge Diagnoses:: 1. Major depressive disorder, recurrent, severe without psychosis 2. OCD 3. Generalized anxiety disorder 4. Cluster B traits 5. Primary support, work and financial issues 6. Marijuana use disorder Reason for Discharge:: Pt has accomplished tx goals AEB ability to maintain mood stability and gains made in IOP. Pt will continue with traditional outpatient counseling and medication management. Treatment Progress During Treatment & Response: Pt responded well and made progress in IOP aftercare as evidenced by pt's participation in group discussions and self- report of consistently applying coping skills. Pt?s symptom reduction while in aftercare was 17%. At d/c she self-reported improved mood, energy, and outlook prior. Additionally, at discharge Pt was reporting consistently practicing self- care, using healthy coping skills, and communicating with supports. Pt still has symptoms and stressors that need resolved and processed, but pt reports overall increased ability to cope. Issues Still to be Addressed:: [place] setting, self-care maintenance, and reinforcing healthy core beliefs, distress tolerance and maintaining mood stability, as well as continued exposure therapy. Discharge Recommendations/Instructions:: Continue with individual outpatient providers for ongoing maintenance and medication management. Pt sees Dr. Jacob at [facility] and Myla Montaño with [facility]. Discharge Handout
== END 2023-11-16 07:04 | disposition home or self-care (01) ==
LOC: BHOG 07:17
PROVIDERS: PCP Internal Medicine; Referring Provider Psychiatry & Neurology Psychiatry; Visit Provider Psychiatry & Neurology Psychiatry
DX: F33.2 Major depressive disorder, recurrent severe without psychotic features (principal); F42.8 Other obsessive-compulsive disorder; F41.1 Generalized anxiety disorder; F12.90 Cannabis use, unspecified, uncomplicated
CPT/HCPCS: 90853